=== PATIENT | female | born 1940 | race Caucasian/White ===

== ENCOUNTER 2019-02-26 09:34 | Outpatient (REF) | payer OTHER, SELFPAY ==
[2019-02-26 19:10] LABS: Anion Gap 12.4 mmol/L (3-11); BUN 23 mg/dL (7-18); CO2 25.6 mmol/L (21.0-32.0); CREATININE 1.08 mg/dL (0.55-1.02); Calcium 9.4 mg/dL (8.5-10.1); Chloride 104 mmol/L (98-107); Estimated GFR 49.33 (mL/min/1.73m2); Glucose 169 mg/dL (70-100); Potassium 4.5 mmol/L (3.5-5.1); Sodium 142 mmol/L (136-145)
== END 2019-02-26 09:54 ==
LOC: NCHCN 09:34
PROVIDERS: PCP Physician Assistant Medical; Visit Provider Physician Assistant Medical
DX: E11.9 Type 2 diabetes mellitus without complications (principal)
CPT/HCPCS: 80048

== ENCOUNTER 2019-04-16 11:16 | Outpatient (REF) | payer OTHER, SELFPAY ==
[2019-04-16 19:01] LABS: Uric Acid 4.5 mg/dL (2.6-6.0)
== END 2019-04-16 11:36 ==
LOC: NCHCN 11:16
PROVIDERS: PCP Physician Assistant Medical; Visit Provider Nurse Practitioner Family
DX: M25.531 Pain in right wrist (principal)
CPT/HCPCS: 84550

== ENCOUNTER 2019-08-31 11:54 | Emergency (ER) | payer OTHER, SELFPAY ==
[2019-08-31 11:59] VITALS: BP 173/74; PULSE 67; RESP 16; TEMP 36.6; O2SAT 98
--- NOTE | 2019-08-31 12:10 | W.ED.GENAD ---
Discharge Plan Disposition Patient Disposition: HOME Discharge Details Chief Complaint: Orthopedic Clinical Impression: Acute pain of left knee Primary Care Provider: Drew Zheng ED Provider: Eliecer Heredia Home Meds and New Rx's Prescriptions: Continued aspirin [Aspir-81] 81 MG tablet,delayed release (DR/EC) 81 mg PO DAILY RF: 0 simvastatin 40 MG tablet 40 mg PO QPM RF: 0 Dexilant 60 MG capsule,biphase delayed releas 60 mg PO DAILY RF: 0 ibuprofen 800 mg Tablet 800 mg PO DAILY RF: 0 tramadol 50 mg Tablet 50 mg PO PRN PRNRF: 0 magnesium 250 mg Tablet 250 mg PO DAILY RF: 0 Calcium 600 + D(3) 600 mg calcium- 200 unit Capsule 1 cap PO DAILY RF: 0 Levemir FlexTouch U-100 Insuln 100 unit/mL (3 mL) Insulin Pen 40 unit SUBCUT DAILY RF: 0 No Action hydrocodone-acetaminophen 5-325 mg tablet 1 tab PO Q8H PRNRF: 0 indomethacin 25 mg capsule 25 mg PO BID PRNRF: 0 Discharge Instructions Instructions: Knee Pain (ED) Additional Instructions: Please take your medication as prescribed. Use knee brace and crutches. Please follow-up with orthopedics. Call to schedule follow-up appointment. Return to the ER for any worsening or new concerning symptoms. Referrals: [facility] [Provider Group] Merna Castanon [ NON-[facility] STAFF PHYSICIAN] - Discharge Data Discharge Date/Time-TO BE ENTERED AT DEPARTURE: 08/31/19 13:13 Medical Decision Making 12:15 -- 78-year-old female here with worsening pain left knee 3 weeks after knee was impacted with a Michael lift resulting in a popping sensation, also had fall about 1 week ago impacting her left anterior tibia. Patient is neurovascular intact distally. She does have mild knee effusion and pain with ambulation and flexion of her knee. I suspect she sustained meniscal tear. Consider ligamentous injury. Plan to obtain x-ray of the knee and tib-fib. 12:50 --x-ray of the knee and tib-fib interpreted by radiology: Negative. Plan for hinged knee brace and crutches and follow-up with orthopedics. HPI General Mode of arrival: ambulatory. Date/Time Provider Initiated Documentation: 08/31/19 12:01. Limitations to Documentation: no limitations. Information obtained by: patient. HPI Narrative: 78-year-old female presents with chief complaint of knee pain. Patient notes left knee pain for the past 3 weeks. She states that 3 weeks ago she recalls experiencing a popping sensation when a Michael lift glanced her knee. Pain has been waxing and waning since onset. Pain is now severe. Pain worse with attempted ambulation and bending of her knee. Patient also notes about a week ago she slipped and fell and impacted her left vazquez. Related Data Home Medications Medication Instructions Recorded Confirmed Dexilant 60 mg PO DAILY 03/30/14 09/19/19 aspirin [Aspir-81] 81 mg PO DAILY 03/30/14 09/19/19 simvastatin 40 mg PO QPM 03/30/14 09/19/19 Calcium 600 + D(3) 1 cap PO DAILY 08/31/19 09/19/19 Levemir FlexTouch U-100 Insuln 40 unit SUBCUT DAILY 08/31/19 09/19/19 ibuprofen 800 mg PO DAILY 08/31/19 09/19/19 magnesium 250 mg PO DAILY 08/31/19 09/19/19 tramadol 50 mg PO PRN PRN 08/31/19 09/19/19 hydrocodone 5 mg-acetaminophen 325 1 tab PO Q8H PRN 09/19/19 09/19/19 mg tablet indomethacin 25 mg capsule 25 mg PO BID PRN 09/19/19 09/19/19 Allergies Allergy/AdvReac Type Severity Reaction Status Date / Time clindamycin Allergy Mild Unverified 09/19/19 12:09 General Stated Complaint: Orthopedic BRIJESH: 4 Review of Systems Musculoskeletal Musculoskeletal: Reports as per HPI [facility] Social History Smoking/Tobacco Use Status: Former Tobacco Use Alcohol Intake: current Alcohol Intake frequency: a few times a month Drug use: Never Substance use type: does not use Do you feel safe at home: Yes Do you feel safe in your relationship?: Yes Exam Const General: cooperative and no acute distress Cardio Rate: regular rate and not tachycardic Rhythm: regular rhythm Pulses: posterior tibial pulses present on the left 2+ Skin General skin exam: no rashes or lesions noted Neuro General: alert, awake, oriented x3 and tone normal Extrem General: no edema Left lower extremity: knee Details: swelling (effusion mild) and knee ligament exam normal; no unusual warmth and lower leg Details: tenderness (proximal anterior tibia), localized swelling Location: of the proximal lower leg and ecchymosis (mild ant tibia); no palpable cords Course Vital Signs Vital signs: Vital Signs Temperature 36.6 C 08/31/19 11:59 Pulse 67 08/31/19 11:59 Respiratory Rate 16 08/31/19 11:59 Blood Pressure 173/74 H 08/31/19 11:59 Pulse Oximetry 98 08/31/19 11:59 Temperature 36.6 C 08/31/19 11:59 Temperature Source Temporal Artery Scan 08/31/19 11:59 Pulse 67 08/31/19 11:59 Respiratory Rate 16 08/31/19 11:59 Respiratory Effort Non-Labored 08/31/19 11:59 Blood Pressure 173/74 H 08/31/19 11:59 Blood Pressure Position Sitting 08/31/19 11:59 Pulse Oximetry 98 08/31/19 11:59 Oxygen Delivery Method Room Air 08/31/19 11:59 Oxygen Flow Rate 0 08/31/19 11:59 Pain Level 8 08/31/19 11:59
--- NOTE | 2019-08-31 12:32 | DI.RAD_ITS ---
EXAM: XR KNEE LT 3V AP,LAT,EVELINA CLINICAL HISTORY: pain TECHNIQUE: COMPARISON: XR KNEE LT 3V AP,LAT,EVELINA from 08/31/2019 XR TIB/FIB LT from 08/31/2019 FINDINGS: Three views of the knee and two views of the leg were obtained. There are minimal degenerative oakes es of the joints of the knee. No fracture seen involving the knee or leg. IMPRESSION:
== END 2019-08-31 13:13 | disposition home or self-care (01) ==
PROVIDERS: Emergency Provider Student in an Organized Health Care Education/Training Program; PCP Internal Medicine
DX: M25.562 Pain in left knee (principal); M25.462 Effusion, left knee; W22.8XXA Striking against or struck by other objects, initial encounter
CPT/HCPCS: 29505; 73562; 99284; 73590; 99283; E0114; L1810

== ENCOUNTER → 2019-09-19 09:22 | Outpatient (BNVA) | payer OTHER, SELFPAY | PROVIDERS: PCP Internal Medicine; Referring Provider Internal Medicine; Visit Provider Orthopaedic Surgery | DX: M23.92 Unspecified internal derangement of left knee (principal); W22.09XA Striking against other stationary object, initial encounter | CPT/HCPCS: 99201; 99213 ==

== ENCOUNTER 2019-09-25 01:34 | Outpatient (CLI) | payer OTHER, SELFPAY ==
--- NOTE | 2019-09-25 15:14 | DI.MRI_ITS ---
EXAM: MR LOWER JOINT LT WO CLINICAL HISTORY: LT INTERNAL DERANGEMENT. TECHNIQUE: Multiplanar multisequence MRI was performed.. COMPARISON: None. FINDINGS: BONES/JOINTS: No evidence of fracture. No evidence of bone lesion. No joint space narrowing identifie d. There is a moderate joint effusion. LIGAMENTS: The medial and lateral collateral ligaments are intact. Anterior and posterior cruciate l igaments are intact. The extensor mechanism and medial and lateral collateral ligaments are intact. MUSCULOTENDINOUS STRUCTURES: The popliteus tendon is unremarkable. SOFT TISSUES: There is edema seen in the soft tissues around the knee. There is a small popliteal cy st present. Menisci: There is a tear of the body and posterior horn of the medial meniscus. The lateral meniscus is intact. Cartilage: Intact. IMPRESSION: 1. Tear of the body and posterior horn of the medial meniscus. 2. No evidence of a ligament tear. 3. Moderate joint effusion. 4. Subcutaneous edema. Popliteal cyst. 5. No evidence of a fracture.
== END 2019-09-25 01:54 ==
PROVIDERS: PCP Internal Medicine; Visit Provider Orthopaedic Surgery
DX: M25.562 Pain in left knee (principal); M23.92 Unspecified internal derangement of left knee; S83.242A Other tear of medial meniscus, current injury, left knee, initial encounter; M25.462 Effusion, left knee; M79.89 Other specified soft tissue disorders; M71.22 Synovial cyst of popliteal space [Baker], left knee
CPT/HCPCS: 73721

== ENCOUNTER → 2019-10-02 10:35 | Outpatient (BNVA) | payer OTHER, SELFPAY | PROVIDERS: PCP Internal Medicine; Referring Provider Internal Medicine; Visit Provider Orthopaedic Surgery | DX: M23.92 Unspecified internal derangement of left knee (principal) | CPT/HCPCS: 99213 ==

== ENCOUNTER 2019-10-19 09:29 | Outpatient (CLI) | payer OTHER, SELFPAY | END 2019-10-19 09:49 | PROVIDERS: PCP Internal Medicine; Visit Provider Orthopaedic Surgery | DX: Z01.818 Encounter for other preprocedural examination (principal) ==

== ENCOUNTER 2019-10-22 15:53 | Observation (INO) | payer OTHER, SELFPAY ==
[2019-10-19 09:46] VITALS: BP 149/81; PULSE 58; RESP 17; TEMP 37; O2SAT 95
[2019-10-22] VITALS (17 sets, daily range): BP systolic 121–200; BP diastolic 43–90; PULSE 53–72; RESP 10–21; TEMP 35.9–36.7; O2SAT 86–100
[2019-10-22] MEDS: Lactated Ringers 1,000 ML 80 ML IV ×2 (12:55→17:16)
[2019-10-22] MEDS: ceFAZolin 2 GM/50 ML BAG IVPB (13:07)
[2019-10-22] MEDS: Bupivacaine 0.5% Pres-Free 30 ML VIAL (14:14)
--- NOTE | 2019-10-22 14:18 | W.PM.DSUDISC ---
Discharge Plan Disposition Patient Disposition: HOME Condition: Good Discharge Details Reason For Visit: Arthroscopy L Knee Attending Provider: Russel Smith Primary Care Provider: Drew Zheng Home Meds and New Rx's Prescriptions: New celecoxib [Celebrex] 200 mg capsule 200 mg PO BID Qty: 60 RF: 0 hydrocodone-acetaminophen 5-325 mg tablet 1 tab PO Q6H PRN (Reason: pain) Qty: 20 RF: 0 Discontinued indomethacin 25 mg capsule 25 mg PO BID PRNRF: 0 ibuprofen 800 mg Tablet 800 mg PO DAILY RF: 0 No Action hydrocodone-acetaminophen 5-325 mg tablet 1 tab PO Q8H PRNRF: 0 aspirin [Aspir-81] 81 MG tablet,delayed release (DR/EC) 81 mg PO DAILY RF: 0 simvastatin 40 MG tablet 40 mg PO QPM RF: 0 tramadol 50 mg Tablet 50 mg PO PRN PRNRF: 0 magnesium 250 mg Tablet 250 mg PO DAILY RF: 0 Calcium 600 + D(3) 600 mg calcium- 200 unit Capsule 1 cap PO DAILY RF: 0 Levemir FlexTouch U-100 Insuln 100 unit/mL (3 mL) Insulin Pen 40 unit SUBCUT DAILY RF: 0 pantoprazole [Protonix] 40 mg Tablet,Delayed Release (Dr/Ec) 40 mg PO DAILY RF: 0 acetaminophen [Tylenol] 325 mg Capsule 650 mg PO ONCE PRNRF: 0 Discharge Instructions Additional Instructions: Crutches to walk. Put as much weight on L leg as your pain allows. Discontinue crutches when you can step on L leg with little pain. Elevate L leg on 1-2 pillows as much as possible for next 48 hours. Apply cryocuff to L knee continuously overnite tonite. Tomorrow, start to use 4 times/day for 1 hour each time. May remove dressings, shower, and get incisions wet after 48 hours. May leave incisions uncovered when they are dry and sealed. Outpatient physical therapy in [facility] on or Tuesday for rehab L knee post-arthroscopic partial lateral meniscectomy. Follow up with in 2 weeks. Take celebrex twice/day as prescribed. It won't bother your stomach like ibuprofen, naprosyn or indocin. Take hydrocodone for breakthru pain, if needed. Referrals: Russel Smith MD [ [facility] STAFF PHYSICIAN] - (f/u in 2 weeks) Equipment/Supplies: Partial Weight Bearing Crutches Activity:: Activity as Tolerated Remove Dressings/Wound Care:: 48 hours Shower/Bathe:: 48 hours Diet:: As Tolerated Discharge Orders Discharge Orders: Discharge Order (Routine); Ordered 10/22/19 Ordered By: Russel Smith DS: Diagnosis Discharge Diagnosis (1) Derange posterior horn lateral meniscus left knee due to old injury: Status: Acute
[2019-10-22] MEDS: fentaNYL 100 MCG/2 ML VIAL IVP ×2 (14:46→14:55)
[2019-10-22] MEDS: HYDROmorphone 2 MG/ML VIAL IVP ×3 (15:03→15:31)
[2019-10-22] MEDS: oxyCODONE-CR 10 MG TABCR PO ×2 (15:55→18:03)
[2019-10-22] MEDS: Simvastatin 40 MG TAB PO (20:15)
[2019-10-22] MEDS: Ketorolac 30 MG/ML VIAL IVP (20:15)
[2019-10-22] MEDS: Normal Saline 1,000 ML 60 ML IV (22:00)
[2019-10-22] MEDS: oxyCODONE 5 mg/Acetaminophen 325 mg TAB 1 TAB PO (22:16)
[2019-10-22] MEDS: Mylanta Suspension 30 ML CUP PO (22:16)
[2019-10-23 01:07] VITALS: BP 133/77; PULSE 84; RESP 19; TEMP 36.6; O2SAT 96
[2019-10-23] MEDS: Ketorolac 30 MG/ML VIAL IVP ×2 (01:59→08:38)
[2019-10-23 02:08] VITALS: TEMP 36.5
[2019-10-23 05:27] VITALS: BP 126/67; PULSE 82; RESP 19; TEMP 37.2; O2SAT 96
[2019-10-23] MEDS: oxyCODONE-CR 10 MG TABCR PO (05:31)
[2019-10-23] MEDS: Mylanta Suspension 30 ML CUP PO (05:32)
[2019-10-23 07:36] VITALS: BP 135/78; PULSE 73; RESP 16; TEMP 36.7; O2SAT 95
[2019-10-23] MEDS: Calcium 600mg/Vit D 200U TAB 1 TAB PO (08:37)
[2019-10-23] MEDS: Magnesium Gluconate 500 MG TAB 250 MG PO (08:37)
[2019-10-23] MEDS: Pantoprazole 40 MG TABCR PO (08:37)
[2019-10-23] MEDS: Normal Saline Flush 10 ML SYR IV (08:37)
[2019-10-23] MEDS: Aspirin E.C. 81 MG TABEC PO (08:37)
[2019-10-23] MEDS: oxyCODONE 5 mg/Acetaminophen 325 mg TAB 1 TAB PO (08:43)
--- NOTE | 2019-10-25 06:40 | ROE_ITS ---
REPORT OF OPERATIVE PROCEDURE DATE OF PROCEDURE October 22, 2019 PREOPERATIVE DIAGNOSIS Internal derangement left knee. POSTOPERATIVE DIAGNOSES Internal derangement left knee due to torn lateral meniscus, and synovitis, left knee. PROCEDURES Arthroscopy of the left knee with arthroscopic partial left lateral meniscectomy, and limited synovec suyapa. ANESTHESIA General. SURGEON Russel Smith M.D. INDICATIONS This is a 78-year-old white female who had a little over two month history of an injury to her left k nee. She sustained a glancing blow from a Michael lift. She thinks that she twisted her knee when she t ried to avoid the lift and she said she fell and heard a pop in her knee. She had some pain, but was able to function until she re-injured her knee three weeks after. She twisted her knee and fell to th e ground striking her vazquez. She felt another pop in her knee. Her knee became much more painful. She went to the Emergency Room on 08/31/19. X-rays did not show any particular injury. She has continued to use crutches. It is very painful with weight bearing to her left knee. She has been taking Tramado l, it has not helped much. She has been icing her knee intermittently. She has been unable to fully e xtend her knee. An MRI scan was obtained, which was interpreted as showing a tear of the body and pos terior horn of the medial meniscus. There is moderate joint effusion and a popliteal cyst. Because of failure to improve after two months with conservative treatment, I felt that an arthroscopic exam of her knee was warranted. The risks and complications of the procedure were to the patient in detail p reoperatively. PROCEDURE The patient was taken to the Operating Room on . She was placed supine on the operating tabl e and a general anesthetic was administered. The left thigh was placed in the arthroscopic leg holde r. Then the left knee was prepped and draped free in the usual sterile fashion. Arthroscopic portal s were established and the left knee was inflated with normal saline solution using the arthroscopy p ump. Intraoperative photographs were obtained to document findings. Upon entering the medial compartment, she was found to have some mild DJD grade 2 over a small area i n the medial femoral condyle mostly on the lateral third. There was some fraying of the inner margin of the medial meniscus, however, when I probed the medial meniscus under direct vision with the right angle nerve hook, there were no occult tears identified. The meniscal rim was total stable. The intr acondylar notch was at first difficult to visualize because of hypertrophic fat pad and synovium. Usi jose high radiofrequency electrocautery wand, I resected the fat pad and hypertrophic synovium in the i ntracondylar notch so I was able to visualize the intracondylar notch clearly. Her anterior and poste rior cruciate ligaments were undamaged and intact. As I entered the lateral compartment, she had a tear of the attachment of the posterior horn of the l ateral meniscus. This was probed under direct vision and there was found to be a small flap tear. The flap tear was resected with the high radiofrequency electrocautery wand and a stable rim remained. I probed not only the posterior attachment of the lateral meniscus, but the entire lateral meniscus w ith the right angle nerve hook following resection and the lateral meniscus was fully stable. The art icular cartilage in the lateral compartment was completely normal and undamaged. The medial gutter was obscured by hypertrophic and hyperemic synovium, probably residual plica. I res ected the hypertrophic synovium using the high radiofrequency electrocautery wand restoring the carline l volume of the medial gutter. Finally, enough synovectomy was performed so that the patellofemoral j oint could be clear visualized. The patella was tracking anatomically with no tilt and there was no e vidence of any significant articular cartilage damage in the patellofemoral joint. At this point, the knee was copiously irrigated with saline solution using the arthroscopy pump until the outflow was c lear. All instruments were removed from the knee. The arthroscopy portals were infiltrated with 0.5% Marcaine solution and were approximated with interrupted #4-0 Nylon sutures. Using a #18 gauge needl e and a syringe through a separate puncture, I injected into the knee 20 cc of 0.5% Marcaine solution along with 4 mg of morphine. Sterile dressings were applied Xeroform gauze, sterile gauze, 4x4s, ABD pads and wrapped with 6-inch Sami bandage for a light pressure dressing. The patient tolerated the procedure well and was discharged to the Recovery Room in good condition. When seen in the Recovery Room when fully recovered, she was complaining of severe pain in her left k nee that was not relieved by the narcotics we were giving her. On examination, her leg was benign and I could not explain why she had so much pain. The procedure was uncomplicated, simple and fast. I fe lt that this may be anesthesia related and I recommended that she be admitted OVB overnight for pain control. The patient agreed with my recommendations. The plan is to discharge her tomorrow if her pain has come under control with oral pain medications.
== END 2019-10-23 10:34 | disposition home or self-care (01) ==
LOC: MS 16:39
PROVIDERS: Admitting Provider Orthopaedic Surgery; PCP Internal Medicine; Visit Provider Orthopaedic Surgery
PROC: 0SBD4ZZ Excision of Left Knee Joint, Percutaneous Endoscopic Approach (ICD-10-PCS; CPT 29870; principal; 2019-10-22 13:30)
DX: S83.282A Other tear of lateral meniscus, current injury, left knee, initial encounter (principal); X50.1XXA Overexertion from prolonged static or awkward postures, initial encounter; M67.262 Synovial hypertrophy, not elsewhere classified, left lower leg; M17.12 Unilateral primary osteoarthritis, left knee; M65.9 Synovitis and tenosynovitis, unspecified; E11.9 Type 2 diabetes mellitus without complications
CPT/HCPCS: 29876; 29881; G0378; J0690; J1100; J1885; J2001; J2250; J2405; J2704; J3010; J3490

== ENCOUNTER → 2019-11-06 10:28 | Outpatient (BNVA) | payer OTHER, SELFPAY | PROVIDERS: PCP Internal Medicine; Referring Provider Internal Medicine; Visit Provider Orthopaedic Surgery | DX: M23.252 Derangement of posterior horn of lateral meniscus due to old tear or injury, left knee (principal); E11.9 Type 2 diabetes mellitus without complications ==

== ENCOUNTER 2019-11-19 17:12 | Outpatient (REF) | payer OTHER, SELFPAY ==
[2019-11-19 19:45] LABS: ALT 22 U/L (14-59); AST 18 U/L (15-37); Albumin 4.3 g/dL (3.4-5.0); Alkaline Phosphatase 89 U/L (46-116); Anion Gap 8.1 mmol/L (3-11); BUN 22 mg/dL (7-18); Bilirubin, Total 0.4 mg/dL (0.2-1.0); CO2 29.9 mmol/L (21.0-32.0); Calcium 9.8 mg/dL (8.5-10.1); Calculated LDL 132 mg/dL (<100); Chloride 104 mmol/L (98-107); Cholesterol 228 mg/dL (<200); Estimated GFR 53.91 (mL/min/1.73m2); Glucose 99 mg/dL (74-106); HDL Cholesterol 60 mg/dL (40-60); Potassium 4.8 mmol/L (3.5-5.1); Sodium 142 mmol/L (136-145); TSH (W/Ref FT4) 3.07 uIU/mL (0.36-3.74); Total Protein 7.7 g/dL (6.4-8.2); Triglyceride 184 mg/dL (<150)
[2019-11-19 19:46] LABS: COMMENT (LAB VIEW ONLY) 125.29 mg/dL; Microalb ug/mg Crea 6.1 ug/mg Cr
== END 2019-11-19 17:32 ==
LOC: NCHCN 17:12
PROVIDERS: PCP Internal Medicine; Visit Provider Physician Assistant
DX: E78.5 Hyperlipidemia, unspecified (principal); E11.9 Type 2 diabetes mellitus without complications; K21.9 Gastro-esophageal reflux disease without esophagitis; M25.562 Pain in left knee; E66.9 Obesity, unspecified
CPT/HCPCS: 80053; 80061; 82043; 82570; 84443

== ENCOUNTER 2019-11-29 10:30 | Outpatient (REF) | payer OTHER, SELFPAY ==
[2019-11-29 19:27] LABS: Abs Immature Grans 0.04 k/cumm (0.0-0.09); Absolute Basophil Count 0.02 k/cumm (0.0-0.2); Absolute Eosinophil Count 0.17 k/cumm (0.0-0.7); Absolute Monocyte Count 0.53 k/cumm (0.11-0.7); Absolute Neutrophil Count 4.59 k/cumm (1.2-6.7); Basophils % 0.3; Eosinophils % 2.4; HCT 36.1 % (36.0-46.0); HGB 11.3 g/dL (12.0-15.5); Immature Grans % 0.6 %; Lymphocytes % 24.1; Mean Corp. HGB Concentration 31.3 g/dL (32.0-36.0); Mean Corpuscular Hemoglobin 30.3 pg (27.0-33.0); Mean Corpuscular Volume 96.8 fL (80-95); Mean Platelet Volume 10.5 fL (8.0-11.0); Monocytes % 7.5; Neutrophils % 65.1; Platelet Count 340 x1000/uL (130-400); RBC 3.73 m/cumm (4.00-5.20); White Blood Cell Count 7.05 k/cumm (4.4-10.8)
[2019-11-29 20:03] LABS: Ferritin 44 ng/mL (8-252); Magnesium 1.8 mg/dL (1.8-2.4); Vitamin B12 368 pg/mL (193-986)
[2019-11-29 20:14] LABS: Iron 69 ug/dL (50-170)
== END 2019-11-29 10:50 ==
LOC: NCHCN 10:30
PROVIDERS: PCP Internal Medicine; Visit Provider Physician Assistant
DX: G25.81 Restless legs syndrome (principal); E11.9 Type 2 diabetes mellitus without complications
CPT/HCPCS: 82607; 82728; 83540; 83735; 85025

== ENCOUNTER 2020-01-09 10:20 | Outpatient (CLI) | payer OTHER, SELFPAY ==
--- NOTE | 2020-01-09 09:30 | DI.RAD_ITS ---
EXAM: XR KNEE LT 2V AP,LAT CLINICAL HISTORY: pain TECHNIQUE: COMPARISON: XR KNEE LT 3V AP,LAT,EVELINA from 08/31/2019 FINDINGS: Two views were obtained. There is mild narrowing of the medial tibiofemoral cartilaginous joint spac e. Mild marginal osteophyte formation noted involving the patellofemoral joint. There does appear t o be a knee joint effusion. No other significant bony abnormality seen. IMPRESSION: Mild degenerative changes, predominantly involving medial tibiofemoral joint.
== END 2020-01-09 10:40 ==
PROVIDERS: PCP Internal Medicine; Referring Provider Internal Medicine; Visit Provider Orthopaedic Surgery
DX: M25.562 Pain in left knee (principal); M17.12 Unilateral primary osteoarthritis, left knee; M25.462 Effusion, left knee; M23.252 Derangement of posterior horn of lateral meniscus due to old tear or injury, left knee; E11.9 Type 2 diabetes mellitus without complications; Z79.4 Long term (current) use of insulin
CPT/HCPCS: 20610; 99213; 73560; J1040

== ENCOUNTER → 2020-02-20 10:47 | Outpatient (BNVA) | payer OTHER, SELFPAY | PROVIDERS: PCP Internal Medicine; Referring Provider Internal Medicine; Visit Provider Orthopaedic Surgery | DX: M23.252 Derangement of posterior horn of lateral meniscus due to old tear or injury, left knee (principal); E11.9 Type 2 diabetes mellitus without complications; Z79.4 Long term (current) use of insulin | CPT/HCPCS: 99213 ==

== ENCOUNTER → 2020-03-19 09:25 | Outpatient (BNVA) | payer OTHER, SELFPAY | PROVIDERS: PCP Internal Medicine; Referring Provider Internal Medicine; Visit Provider Orthopaedic Surgery | DX: M70.52 Other bursitis of knee, left knee (principal); M23.252 Derangement of posterior horn of lateral meniscus due to old tear or injury, left knee; E11.9 Type 2 diabetes mellitus without complications | CPT/HCPCS: 20610; 99213; J1040 ==

== ENCOUNTER → 2020-04-16 09:26 | Outpatient (BNVA) | payer OTHER, SELFPAY | PROVIDERS: PCP Internal Medicine; Referring Provider Internal Medicine; Visit Provider Orthopaedic Surgery | DX: M70.52 Other bursitis of knee, left knee (principal); M23.252 Derangement of posterior horn of lateral meniscus due to old tear or injury, left knee | CPT/HCPCS: 20610; 99213; J1040 ==

== ENCOUNTER 2020-08-20 11:26 | Outpatient (REF) | payer OTHER, SELFPAY ==
[2020-08-20 21:16] LABS: ALT 34 U/L (14-59); AST 26 U/L (15-37); Albumin 3.6 g/dL (3.4-5.0); Alkaline Phosphatase 121 U/L (46-116); BUN 18 mg/dL (7-18); Bilirubin, Total 0.4 mg/dL (0.2-1.0); CREATININE 1.06 mg/dL (0.55-1.02); Calcium 8.9 mg/dL (8.5-10.1); Chloride 105 mmol/L (98-107); Estimated GFR 50.27 (mL/min/1.73m2); Glucose 223 mg/dL (74-106); LDL CHOLESTEROL 68 mg/dL (<100); Potassium 4.6 mmol/L (3.5-5.1); Sodium 140 mmol/L (136-145); Total Protein 6.4 g/dL (6.4-8.2)
== END 2020-08-20 11:46 ==
LOC: NCHCN 11:26
PROVIDERS: PCP Internal Medicine; Visit Provider Physician Assistant
DX: E11.9 Type 2 diabetes mellitus without complications (principal)
CPT/HCPCS: 80053; 83721

== ENCOUNTER 2020-08-21 10:30 | Outpatient (REF) | payer OTHER, SELFPAY | END 2020-08-21 10:50 | LOC: NCHCN 10:30 | PROVIDERS: PCP Internal Medicine; Visit Provider Physician Assistant | DX: E11.9 Type 2 diabetes mellitus without complications (principal); N89.9 Noninflammatory disorder of vagina, unspecified | CPT/HCPCS: 87480; 87510; 87660 ==

== ENCOUNTER 2020-10-30 16:20 | Outpatient (REF) | payer OTHER, SELFPAY ==
[2020-10-30 15:55] LABS: Anion Gap 6.5 mmol/L (3-11); BUN 22 mg/dL (7-18); CO2 27.5 mmol/L (21.0-32.0); CREATININE 1.2 mg/dL (0.55-1.02); Calcium 9.4 mg/dL (8.5-10.1); Chloride 108 mmol/L (98-107); Estimated GFR 43.56 (mL/min/1.73m2); Glucose 87 mg/dL (74-106); Magnesium 2.1 mg/dL (1.8-2.4); Potassium 4.6 mmol/L (3.5-5.1); Sodium 142 mmol/L (136-145)
== END 2020-10-30 16:21 | disposition home or self-care (01) ==
LOC: NCHCN 16:20
PROVIDERS: PCP Internal Medicine; Visit Provider Physician Assistant
DX: R60.0 Localized edema (principal); G25.81 Restless legs syndrome; M79.18 Myalgia, other site
CPT/HCPCS: 80048; 83735

== ENCOUNTER 2020-12-11 11:22 | Outpatient (REF) | payer OTHER, SELFPAY ==
[2020-12-11 15:44] LABS: COMMENT (LAB VIEW ONLY) 76.07 mg/dL; Microalb ug/mg Crea 6.2 ug/mg Cr
== END 2020-12-11 11:23 | disposition home or self-care (01) ==
LOC: NCHCN 11:22
PROVIDERS: PCP Internal Medicine; Visit Provider Physician Assistant
DX: E11.9 Type 2 diabetes mellitus without complications (principal)
CPT/HCPCS: 82043; 82570

== ENCOUNTER 2021-04-29 01:15 | Outpatient (CLI) | payer OTHER, SELFPAY ==
--- NOTE | 2021-04-29 | DI.MRI_ITS ---
Exam(s) MR LOWER JOINT LT WO EXAM: MR LOWER JOINT LT WO CLINICAL HISTORY: LT KNEE PAIN, M25.562 TECHNIQUE: Multiplanar multisequence MRI of the knee was performed. COMPARISON: MR MR LOWER JOINT LT WO from 09/25/2019 CR XR KNEE LT 2V AP,LAT from 01/09/2020 FINDINGS: EFFUSION: There is a moderate-sized joint effusion. No obvious loose intra-articular body. There is a tiny Landry cyst in the medial popliteal fossa. This measures less than 1 cm. MARROW:There is no evidence of fracture, bone contusion, nor osteochondral defects.. There are no si gnificant osseous lesions. PATELLOFEMORAL COMPARTMENT: The quadriceps tendon is intact. The patellar ligament is intact. There is moderate relatively uniform thinning of the retropatellar cartilage. There is mild degenera tive subarticular edema in the posterior patella. No osteochondral defect nor prominent degenerative cyst at this level. No patellar retinacular tears. CRUCIATE LIGAMENTS: The anterior cruciate ligament is intact.The posterior cruciate ligament is intac t. MEDIAL COMPARTMENT/MEDIAL MENISCUS: There is a complex tear in the posterior horn of the medial menis cus noted.On the present study the main component of the tear is 9 millimeters medial to the root att achment.. There is mild extrusion of the posterior horn, more so than previous but without descent i nto the gutter. No obvious tear of the anterior horn. Moderate degenerative changes in the overlyin g cartilage. No osteochondral defect. No subarticular edema in the femoral condyle. Small marginal osteophyte.. MEDIAL COLLATERAL LIGAMENT: Mild sprain signal. No high-grade tear LATERAL COMPARTMENT/LATERAL MENISCUS: There is now a tear in the posterior horn of the lateral menisc us which was not previously present. Location of this tear is similar to the tear of the posterior h orn of the medial meniscus, approximately 9 millimeters in from the root and this tear was not eviden t on the prior MRI study of September 2019. Anterior horn of the lateral meniscus appears intact. The re are minimal cartilage changes over the lateral femoral condyle. No degenerative subarticular intr aosseous signal and no osteochondral defects. No obvious osteophytes. ILIOTIBIAL BAND: Intact LATERAL COLLATERAL LIGAMENT COMPLEX: The fibular collateral ligament is intact. The biceps femoris t endon is intact.Popliteus muscle and tendon are intact. IMPRESSION: 1. Compared to the prior left knee MRI scan of September 2019 there are now tears of the posterior horn s of both menisci. There was previously only a tear of the posterior horn of the medial meniscus. P resently this is a complex tear and there is also a somewhat similar appearing tear of the posterior horn of the lateral meniscus which was not evident on the prior study. 2. There are only mild degenerative cartilage changes. No osteochondral defects. No subarticular in traosseous edema. 3. Cruciate and collateral ligaments are intact. 4. Moderate-sized joint effusion. There is no obvious loose intra-articular body. A tiny Landry cyst is noted, measuring less than 1 cm. DATA REPOSITORY:
== END 2021-04-29 01:35 ==
PROVIDERS: PCP Internal Medicine; Visit Provider Physician Assistant
DX: M71.22 Synovial cyst of popliteal space [Baker], left knee (principal); M17.12 Unilateral primary osteoarthritis, left knee; M23.252 Derangement of posterior horn of lateral meniscus due to old tear or injury, left knee
CPT/HCPCS: 73721

== ENCOUNTER → 2021-05-08 09:06 | Outpatient (BNVA) | payer OTHER, SELFPAY | PROVIDERS: PCP Internal Medicine; Referring Provider Internal Medicine; Visit Provider Student in an Organized Health Care Education/Training Program | DX: M23.92 Unspecified internal derangement of left knee (principal); Z98.890 Other specified postprocedural states | CPT/HCPCS: 20610; J1040 ==

== ENCOUNTER → 2021-06-25 12:44 | Outpatient (BNVA) | payer OTHER, SELFPAY | PROVIDERS: PCP Internal Medicine; Referring Provider Internal Medicine | DX: Z01.818 Encounter for other preprocedural examination (principal); M23.92 Unspecified internal derangement of left knee; E11.69 Type 2 diabetes mellitus with other specified complication ==

== ENCOUNTER 2021-06-29 02:49 | Outpatient (CLI) | payer OTHER, SELFPAY ==
[2021-06-29 12:53] LABS: Source Nasal/Nares
[2021-06-29 20:55] LABS: COVID-19 PCR Negative (Negative)
== END 2021-06-29 02:50 | disposition home or self-care (01) ==
LOC: LBO 02:49
PROVIDERS: PCP Internal Medicine; Visit Provider Student in an Organized Health Care Education/Training Program
DX: Z20.822 Contact with and (suspected) exposure to COVID-19 (principal); Z01.818 Encounter for other preprocedural examination
CPT/HCPCS: 87635

== ENCOUNTER 2021-06-30 07:40 | Day surgery (SDC) | payer OTHER, SELFPAY ==
[2021-06-30] VITALS (8 sets, daily range): BP systolic 157–189; BP diastolic 52–86; PULSE 67–78; RESP 16–26; TEMP 35.4–36.2; O2SAT 95–99; BMI 33.3
--- NOTE | 2021-06-30 07:29 | PDOC.DSDIS_ITS ---
Documented by User: ADRIÁN Pearson 06/30/21 07:31 Discharge Plan Disposition Patient Disposition: HOME Condition: Good Discharge Details Reason For Visit: Left Knee Arthroscopy Attending Provider: León Samuel Primary Care Provider: Drew Zheng Home Meds and New Rx's Prescriptions: New hydrocodone-acetaminophen 5-325 mg tablet 1 tab PO Q6H PRN (Reason: pain) Qty: 8 RF: 0 acetaminophen 500 mg tablet 500 mg PO Q6H PRN PRN (Reason: pain) Qty: 60 RF: 3 Continued aspirin [Aspir-81] 81 MG tablet,delayed release (DR/EC) 81 mg PO DAILY RF: 0 simvastatin 40 MG tablet 40 mg PO QPM RF: 0 magnesium 250 mg Tablet 250 mg PO DAILY RF: 0 Calcium 600 + D(3) 600 mg calcium- 200 unit Capsule 1 cap PO DAILY RF: 0 Levemir FlexTouch U-100 Insuln 100 unit/mL (3 mL) Insulin Pen 50 unit SUBCUT HS RF: 0 Invokana 100 mg tablet 100 mg PO DAILY RF: 0 meloxicam [Mobic] 15 mg tablet 15 mg PO DAILY Qty: 30 RF: 3 Discontinued acetaminophen [Tylenol] 325 mg Capsule 650 mg PO ONCE PRNRF: 0 Discharge Instructions Stand Alone Forms: Anesthesia Discharge Inst., Anes.Nerve Block Instructions, Jimmie Knee Arthroscopy, Elba Amaro ([facility]) Referrals: León Samuel MD [ [facility] STAFF PHYSICIAN] - Equipment/Supplies: Partial Weight Bearing Crutches Activity:: Activity as Tolerated Remove Dressings/Wound Care:: 72 hours Shower/Bathe:: 72 hours Diet:: As Tolerated Discharge Orders Discharge Orders: Discharge Order (Routine); Ordered 06/30/21 Ordered By: Mary Montaño DS: Diagnosis Discharge Diagnosis (1) Internal derangement of left knee: Status: Acute Documented by User: León Samuel MD 06/30/21 12:28 Discharge Plan Disposition Patient Disposition: HOME Condition: Good Discharge Details Reason For Visit: Left Knee Arthroscopy Attending Provider: León Samuel Primary Care Provider: Drew Zheng Home Meds and New Rx's Prescriptions: New hydrocodone-acetaminophen 5-325 mg tablet 1 tab PO Q6H PRN (Reason: pain) Qty: 8 RF: 0 acetaminophen 500 mg tablet 500 mg PO Q6H PRN PRN (Reason: pain) Qty: 60 RF: 3 Continued aspirin [Aspir-81] 81 MG tablet,delayed release (DR/EC) 81 mg PO DAILY RF: 0 simvastatin 40 MG tablet 40 mg PO QPM RF: 0 magnesium 250 mg Tablet 250 mg PO DAILY RF: 0 Calcium 600 + D(3) 600 mg calcium- 200 unit Capsule 1 cap PO DAILY RF: 0 Levemir FlexTouch U-100 Insuln 100 unit/mL (3 mL) Insulin Pen 50 unit SUBCUT HS RF: 0 Invokana 100 mg tablet 100 mg PO DAILY RF: 0 meloxicam [Mobic] 15 mg tablet 15 mg PO DAILY Qty: 30 RF: 3 Discontinued acetaminophen [Tylenol] 325 mg Capsule 650 mg PO ONCE PRNRF: 0 Discharge Instructions Stand Alone Forms: Anesthesia Discharge Inst., Anes.Nerve Block Instructions, Jimmie Knee Arthroscopy, Elba Amaro ([facility]) Referrals: León Samuel MD [ [facility] STAFF PHYSICIAN] - Equipment/Supplies: Partial Weight Bearing Crutches Activity:: Activity as Tolerated Remove Dressings/Wound Care:: 72 hours Shower/Bathe:: 72 hours Diet:: As Tolerated Discharge Orders Discharge Orders: Discharge Order (Routine); Ordered 06/30/21 Ordered By: Mary Montaño
--- NOTE | 2021-06-30 08:09 | W.ANESPRE ---
General Info Date of Service Date Performed: 06/30/21 Height: 5 ft 2 in Weight: 82.552 kg Body Mass Index (BMI): 33.3 Surgical Procedure: Operation Date: 06/30/21 10:10 Proposed Procedures Side Surgeon p Knee Arthroscopy Left León Samuel MD Meds Allergies and Home Medications Allergies Allergy/AdvReac Type Severity Reaction Status Date / Time clindamycin Allergy Mild Unverified 06/30/21 07:03 Home Medication Medication Instructions Recorded aspirin [Aspir-81] 81 mg PO DAILY 03/30/14 simvastatin 40 mg PO QPM 03/30/14 Calcium 600 + D(3) 1 cap PO DAILY 08/31/19 Levemir FlexTouch U-100 Insuln 50 unit SUBCUT HS 08/31/19 magnesium 250 mg PO DAILY 08/31/19 acetaminophen [Tylenol] 650 mg PO ONCE PRN 10/22/19 meloxicam 15 mg tablet 15 mg PO DAILY #30 tab 04/16/20 Invokana 100 mg PO DAILY 06/26/21 Current Visit Medications: Current Medications Generic Name Dose Route Start Last Admin Trade Name Freq PRN Reason Stop Dose Admin Acetaminophen 650 mg 06/30/21 07:23 Acetaminophen 325 Mg Tab PO Q4H PRN PRN Hydrocodone Bitart/Acetaminophen 0 tab 06/30/21 07:23 Hydrocodone 5/Acetaminophen 325 Tab PO Q3H PRN PRN Pain Ringer's Solution 1,000 mls @ 80 mls/hr 06/30/21 06:00 IV 07/29/21 23:59 INFUSION STEPH Cefazolin Sodium/Dextrose 2 gm in 50 mls @ 100 mls/hr 06/30/21 06:00 Ancef Duplex IVPB 07/29/21 23:59 PREOP STEPH Ondansetron HCl 8 mg/ Sodium 54 mls @ 200 mls/hr 06/30/21 07:23 Chloride IVPB Q6H PRN PRN IV Miscellaneous Supplies 1 each 06/30/21 06:00 Iv Access IV 07/29/21 23:59 DIRECTED STEPH Sodium Chloride 0 ml 06/30/21 06:00 Normal Saline Flush 10 Ml Syr IV 07/29/21 23:59 PRN PRN Sodium Chloride 0 ml 06/30/21 06:00 Normal Saline 10 Ml Vial IJ 07/29/21 23:59 DIRECTED PRN Sterile Water 0 ml 06/30/21 06:00 Water,Injection,Sterile 10 Ml Vial IJ 07/29/21 23:59 DIRECTED PRN PFSH Active Problems Active Problems: Problem Status Onset Code Wrist pain, right M25.531 Osteoarthritis M19.90 Basal cell carcinoma, face C44.310 Contracture of joint of right hand M24.541 Health care maintenance Z00.00 AK (actinic keratosis) L57.0 Irritable bowel syndrome K58.9 Diverticulitis K57.92 Pes anserine bursitis M70.50 Internal derangement of left knee M23.92 Derange posterior horn lateral meniscus left knee due to old injury M23.252 Diabetes mellitus, type II E11.9 Hiatal hernia with gastroesophageal reflux disease and esophagitis K44.9, K21.0 Hyperlipidemia E78.5 Medical History Medical History (Updated 06/30/21 @ 08:02 by Marianela Rascon) Diabetes mellitus, type II Diverticulitis Hiatal hernia with gastroesophageal reflux disease and esophagitis Hyperlipidemia Tear of medial meniscus of left knee Surgical History Surgical History Derange posterior horn lateral meniscus left knee due to old injury s/p L knee arthroscopy 10/22/2019 History of bilateral carpal tunnel release History of cholecystectomy History of partial colectomy Hx of hysterectomy Tobacco Smoking/Tobacco Use Status: Former Tobacco Use Alcohol Alcohol Intake: current Alcohol intake frequency: a few times a week Alcohol type: hard liquor Substance Use Substance use: Never Substance use type: does not use and marijuana Details: smokes marijuana for pain and for sleep occasionally. Marijuana: t-3, couple hits. Alcohol: t-4, couple drinks Vital Signs and Lab Results Lab Results Blood Type / Crossmatch: No Data to Display Complete Blood Count: No Data to Display Complete Metabolic Panel: No Data to Display Liver Function Panel: No Data to Display Coagulation Panel: No Data to Display Cardiac Panel: No Data to Display Arterial Blood Gas: No Data to Display Venous Blood Gas: No Data to Display Pancreas Panel: No Data to Display Thyroid Panel: No Data to Display Infectious Disease: Coronavirus (COVID-19)(PCR) Negative (Negative) 06/29/21 10:40 06/29/21 Coronavirus 2019 Source Nasal/Nares 06/29/21 10:40 06/29/21 Blood Cultures: No Data to Display Toxicology Panel: No Data to Display Anesthesia Assessment and Plan Anesthesia History Personal History: No History of Anesthesia Complications Family History: No Family History of Anesthesia Complications Exercise Tolerance Exercise Tolerance: Metabolic Equivalents>4 Cardiac & Pulmonary Exam Cardiac Exam: Normal S1/S2 Heart Sounds Pulmonary Exam: Clear Bilateral Breath Sounds Airway Exam Known Difficult Airway: No Mallampati Class: 2 Mouth Opening: Normal (> 3cm) Thyromental Distance: Greater than 3 cm Neck Range of Motion: Full ROM Neck Circumference: Thick Teeth Condition: Removable Dentures/Plates Upper ASA Classification ASA Score: ASA 2 Emergency Case?: No NPO Status NPO Status: NPO Clears >2 hours, Solids >8 hours Anesthesia Plan Resuscitation Status: Full Code Anesthesia Technique: Spinal Anesthesia Airway Planned: Natural Airway Pain Management: Surgeon and patient request nerve block Monitors Used: Standard Monitors
[2021-06-30] MEDS: Lactated Ringers 1,000 ML 80 ML IV (08:30)
[2021-06-30] MEDS: ceFAZolin 2 GM/50 ML BAG IVPB (09:28)
--- NOTE | 2021-06-30 09:57 | W.ANESNERVE ---
Nerve Block Single Injection Procedure Date and Time Date Performed: 06/30/21 Procedure Start: 09:18 Location Where Procedure Performed Procedure Location: PACU Reason Performed: Postoperative Analgesia Requesting Provider: León Samuel Timeout Performed Timeout Performed: Yes Monitoring Used ECG, Blood Pressure and SpO2 Sterility Sterility: Hand Hygiene, Surgical Cap, Surgical Mask, Sterile Gloves, Eye Protection and Chlorhexidine Sedation Given During Procedure Sedation Given (Indicate Dose Given): No Sedation given Patient Mental Status Patient Mental Status: Awake Nerve Block 1st Nerve Block: Laterality: Left Block Type: Adductor Canal Needle / Catheter Used: 100mm SonoPlex II Local Anesthetic Bolus (Indicate Dose Given): Lidocaine used for local infiltration of skin, Injected in 3-5ml increments after negative blood aspiration, Bupivacaine 0.5% Dose:: 10 mL and Exparel Dose:: 10 mL Additives (Indicate Dose Given): None Ultrasound: Sterile probe cover and gel used Ultrasound Image Saved?: Yes Nerve Stimulator: Not Used Paresthesia: None Procedure Tolerated: No Complications Procedure Outcome: Successful Performed By: Minnie Cantu
[2021-06-30] MEDS: Bupivacaine 0.5% Pres-Free 30 ML VIAL (10:12)
--- NOTE | 2021-06-30 12:30 | W.ANESPOSTOP ---
Postoperative Evaluation Date, Time and Location Date Performed: 06/30/21 Time Performed: 12:30 Patient Location: Day Surgery Unit Vital Signs Most Recent Imported Vital Signs: Most Recent Vital Signs Temp Pulse Resp BP Pulse Ox 36.2 C L 68 18 173/86 H 97 06/30/21 11:25 06/30/21 11:25 06/30/21 11:25 06/30/21 11:25 06/30/21 11:25 Pain Score Most Recent Pain Score: Most Recent Pain Score Pain Level 0 06/30/21 11:25 Assessment Mental Status: Awake (Alert & Oriented to Patient Baseline) Airway and Respiratory Function: Patent airway with normal (patient baseline) respiratory exam Cardiovascular Function: Hemodynamically Stable Hydration Status: Adequately Hydrated Nausea & Vomiting: No Nausea or Vomiting Pain: Pt. Denies Any Pain Peripheral Nerve Block: Regional nerve block not resolved at time of post operative discharge
--- NOTE | 2021-06-30 13:53 | ROE_ITS ---
Date of service: 06/30/21 Time of Service: 10:18 Operative Note Operative Note DATE OF PROCEDURE: 06/30/21 PRE-OP DIAGNOSIS: Left Knee Medial and Lateral Meniscus Tears POST-OP DIAGNOSIS: same Left knee medial femur chondromalacia, Grade IV PROCEDURE: Left Knee Arthroscopic Partial Lateral and Medial Menisectomies SURGEON: León Samuel ANESTHESIA TYPE: Spinal Refer to Anesthesia Record ESTIMATED BLOOD LOSS: 5 PATHOLOGY: none sent TOURNIQUET TIME: 0 COMPLICATIONS: None Patient was transported to: PACU Patient's condition: stable Indications: I have seen All in clinic for symptoms of a meniscus tear. This was confirmed based on MRI and exam findings. Nonoperative measures were exhausted but disability and pain persisted. I discussed knee arthroscopy with meniscal intervention with the patient. I reviewed the risks of the procedure to include, but not limited to, bleeding, infection, pain, stiffness, damage to nerves or vessels, recurrence, blood clot. Despite these risks, the patient elected to proceed. Findings: A diagnostic arthroscopy was performed with the following findings: Suprapatellar Pouch: Mild inflammatory change, No loose bodies Medial Compartment: Complex medial meniscal tear, Intact meniscal root, Focal Gr jerrod IV chondromalacia of the central femur with some surrounding Grade II/III for a majority of the weightbearing surface, Grade II chondromalacia of the tibia, No loose bodies Notch: ACL and PCL were intact Lateral Compartment: Horizontal tear just lateral to the root but not extending into the meniscal root], Some Grade I chondromalacia and focal areas of Grade II, No loose bodies Patellofemoral Compartment: Grade II chondromalacia, No apparent patellar maltracking Procedure Description: All was greeted in the preoperative holding area where t he correct side was identified and marked. The consent was reviewed with the patient and signed. The history and physical was updated. All questions were answered. All was taken back to the operating room. The patient was placed into the supine position on the operating room table. A nonsterile tourniquet was placed high onto the leg but not used. All bony prominences were well padded. Pr ophylactic antibiotics in the form of Cefazolin were administered. The left leg was then prepped with Chloraprep and draped in a standard fashion with stockinette and extremity drape. A timeout to confirm correct identity, side and site, procedure, allergies, anesthesia, and medical concerns was performed. The leg was placed into a pneumatic leg chatterjee, SPIDER2. A standard lateral portal was made at the lateral border of the patella tendon in line with the inferior pole of the patella, soft spot. The skin and deep tissue was incised sharply and the blunt trochar was inserted atraumatically. A diagnostic arthroscopy was performed and the findings are listed above. The suprapatellar pouch had mild inflammatory change. The patellofemoral articulation showed grade II chondromalacia as well as good tracking. The lateral gutter had no loose bodies and the medial gutter had no loose bodies. The knee was brought into some valgus stress in extension to open the medial compartment. A medial portal was made, localized by a spinal needle. The portal was created with an #11 blade through skin and capsule under direct visualization avoiding any meniscal injury. A probe was then inserted into the medial compartment. The medial compartment was fully inspected. The chondral surface of the tibia showed grade II chondromalacia and the surface of the femur showed some diffuse grade II/III chondromalacia and a central area of grade IV chondromalacia measuring 4 x 4 mm with exposed bone. The medial meniscus had a complex tear of the posterior horn. After evaluation, the meniscus was debrided down to a stable base using a series of biters and arthroscopic esther. It was probed afterwards to confirm that the tear had been removed and the meniscus was stable. The notch was then inspected which showed an intact ACL and an intact PCL. The leg was then brought into a figure of 4 position. The lateral compartment was fully inspected with the arthroscope and a probe. The chondral surface of the lateral femur showed grade I chondromalacia with some focal areas of grade 2. The chondral surface of the lateral tibia showed grade I chondromalacia. The lateral meniscus had central tear located just lateral to the posterior root. It did not completely disrupt the peripheral fibers. After evaluation, the meniscus was debrided down to a stable base using a series of biters and arthroscopic esther. It was probed afterwards to confirm that the tear had been removed and the meniscus was stable. The arthroscope was brought back into the suprapatellar pouch and the leg was in full extension. The knee was thoroughly irrigated with the arthroscopic fluid on high flow and pressure. Inflow was stopped and excess fluid was removed. The wounds were closed with 4-0 Nylon. The soft tissues and the deep tissues about the knee were injected with 0.5% bupivacaine. The wounds were dressed with Xeroform, 4x4 gauze, ABD pad, Kerlix and an KIERAN wrap. A cryo-cuff was ap plied. The patient tolerated the procedure well and was returned to the Same Day Surgery area in a stable condition suffering no known complication.
== END 2021-06-30 12:39 | disposition home or self-care (01) ==
PROVIDERS: PCP Internal Medicine; Visit Provider Student in an Organized Health Care Education/Training Program
PROC: (CPT 29870; principal; 2021-06-30 10:00)
DX: M23.262 Derangement of other lateral meniscus due to old tear or injury, left knee (principal); M23.232 Derangement of other medial meniscus due to old tear or injury, left knee; M94.262 Chondromalacia, left knee; E11.9 Type 2 diabetes mellitus without complications; E78.5 Hyperlipidemia, unspecified
CPT/HCPCS: 29880; J0690; J1100; J2250

== ENCOUNTER → 2021-07-13 09:48 | Outpatient (BNVA) | payer MEDICARE, SELFPAY | PROVIDERS: PCP Internal Medicine; Referring Provider Internal Medicine | DX: Z47.89 Encounter for other orthopedic aftercare (principal); M23.92 Unspecified internal derangement of left knee ==

== ENCOUNTER 2022-02-10 19:20 | Outpatient (REF) | payer MEDICARE, SELFPAY ==
[2022-02-10 21:13] LABS: Anion Gap 9.6 mmol/L (3-11); BUN 28 mg/dL (7-18); CO2 25.4 mmol/L (21.0-32.0); CREATININE 1.2 mg/dL (0.55-1.02); Calcium 8.9 mg/dL (8.5-10.1); Chloride 108 mmol/L (98-107); Estimated GFR 43.34 (mL/min/1.73m2); Glucose 125 mg/dL (74-106); Potassium 4.7 mmol/L (3.5-5.1); Sodium 143 mmol/L (136-145)
== END 2022-02-10 19:21 | disposition home or self-care (01) ==
LOC: NCHCN 19:20
PROVIDERS: PCP Internal Medicine; Visit Provider Physician Assistant
DX: E11.9 Type 2 diabetes mellitus without complications (principal)
CPT/HCPCS: 80048

== ENCOUNTER 2022-05-12 10:38 | Outpatient (REF) | payer MEDICARE, SELFPAY ==
[2022-05-12 20:17] LABS: Abs Immature Grans 0.02 10^3/uL (0.0-0.06); Absolute Basophil Count 0.04 10^3/uL (0.0-0.2); Absolute Eosinophil Count 0.18 10^3/uL (0.0-0.7); Absolute Lymphocyte Count 1.93 10^3/uL (1.2-3.4); Absolute Monocyte Count 0.52 10^3/uL (0.1-0.8); Absolute Neutrophil Count 3.16 10^3/uL (1.2-6.7); Basophils % 0.7; Eosinophils % 3.1; HCT 39.4 % (36.0-46.0); HGB 12.8 g/dL (11.2-15.7); Immature Grans % 0.3; MCH 30.7 pg (27.0-33.0); MCHC 32.5 % (32.0-36.0); MCV 95 fL (80-95); MPV 10.9 fL (8.0-11.0); Monocytes % 8.9; Platelet Count 289 10^3/uL (130-400); RBC 4.17 10^6/uL (3.93-5.22); RDW 13.2 % (11.7-14.6); RDW-SD 46.4 fL; WBC 5.85 10^3/uL (4.4-10.8)
[2022-05-12 20:52] LABS: ALT 28 U/L (14-59); AST 26 U/L (15-37); Albumin 3.4 g/dL (3.4-5.0); Alkaline Phosphatase 67 U/L (46-116); Anion Gap 9.2 mmol/L (3-11); BUN 24 mg/dL (7-18); Bilirubin, Total 0.4 mg/dL (0.2-1.0); CO2 25.8 mmol/L (21.0-32.0); CREATININE 1.1 mg/dL (0.55-1.02); Calcium 8.8 mg/dL (8.5-10.1); Chloride 106 mmol/L (98-107); Estimated GFR 51.11 (mL/min/1.73m2); Glucose 78 mg/dL (74-106); Magnesium 1.9 mg/dL (1.8-2.4); Potassium 4.4 mmol/L (3.5-5.1); Sodium 141 mmol/L (136-145); TSH (W/Ref FT4) 5.14 uIU/mL (0.36-3.74); Total Protein 6.9 g/dL (6.4-8.2)
[2022-05-12 21:16] LABS: FREE T4 0.74 ng/dL (0.76-1.46)
== END 2022-05-12 10:39 | disposition home or self-care (01) ==
LOC: NCHCN 10:38
PROVIDERS: PCP Internal Medicine; Visit Provider Physician Assistant
DX: R61 Generalized hyperhidrosis (principal); E11.9 Type 2 diabetes mellitus without complications; R25.2 Cramp and spasm
CPT/HCPCS: 80053; 83735; 84439; 84443; 85025

== ENCOUNTER 2022-08-10 18:30 | Outpatient (REF) | payer MEDICARE, SELFPAY ==
[2022-08-10 19:13] LABS: TSH (W/Ref FT4) 0.59 uIU/mL (0.36-3.74)
== END 2022-08-10 18:31 | disposition home or self-care (01) ==
LOC: NCHCN 18:30
PROVIDERS: PCP Internal Medicine; Visit Provider Physician Assistant
DX: E03.9 Hypothyroidism, unspecified (principal)
CPT/HCPCS: 84443

== ENCOUNTER 2022-11-11 16:27 | Outpatient (REF) | payer MEDICARE, SELFPAY ==
[2022-11-11 18:59] LABS: Abs Immature Grans 0.01 10^3/uL (0.0-0.06); Absolute Basophil Count 0.01 10^3/uL (0.0-0.2); Absolute Eosinophil Count 0.04 10^3/uL (0.0-0.7); Absolute Lymphocyte Count 1.24 10^3/uL (1.2-3.4); Absolute Monocyte Count 0.45 10^3/uL (0.1-0.8); Basophils % 0.3; HCT 40.5 % (36.0-46.0); HGB 12.6 g/dL (11.2-15.7); Immature Grans % 0.3; Lymphocytes % 31.1; MCH 29.4 pg (27.0-33.0); MCHC 31.1 % (32.0-36.0); MCV 95 fL (80-95); MPV 10.6 fL (8.0-11.0); Monocytes % 11.3; Platelet Count 246 10^3/uL (130-400); RBC 4.28 10^6/uL (3.93-5.22); RDW 13.1 % (11.7-14.6); RDW-SD 45.4 fL; WBC 3.99 10^3/uL (4.4-10.8)
[2022-11-11 19:05] LABS: Absolute Neutrophil Count 2.23 10^3/uL (1.2-6.7)
[2022-11-11 19:17] LABS: ALT 29 U/L (14-59); AST 26 U/L (15-37); Albumin 3.4 g/dL (3.4-5.0); Alkaline Phosphatase 93 U/L (46-116); Anion Gap 9.4 mmol/L (3-11); BUN 20 mg/dL (7-18); Bilirubin, Total 0.3 mg/dL (0.2-1.0); CO2 25.6 mmol/L (21.0-32.0); Calcium 8.7 mg/dL (8.5-10.1); Chloride 108 mmol/L (98-107); Estimated GFR 57.31 (mL/min/1.73m2); Glucose 189 mg/dL (74-106); NT-proBNP 356 pg/mL (<300); Potassium 4.1 mmol/L (3.5-5.1); Sodium 143 mmol/L (136-145); Total Protein 6.6 g/dL (6.4-8.2)
[2022-11-11 19:59] LABS: Troponin I 72 ng/L (<or=60)
== END 2022-11-11 16:28 | disposition home or self-care (01) ==
LOC: NCHCN 16:27
PROVIDERS: PCP Internal Medicine; Visit Provider Physician Assistant
DX: R06.02 Shortness of breath (principal); R07.89 Other chest pain; R63.4 Abnormal weight loss; R53.83 Other fatigue
CPT/HCPCS: 80053; 83880; 84484; 85025

== ENCOUNTER 2022-12-17 11:20 | Outpatient (CLI) | payer MEDICARE, SELFPAY ==
--- NOTE | 2022-12-17 10:30 | DI.RAD_ITS ---
Exam(s) XR KNEE LT 3V AP,LAT,EVELINA EXAM: XR KNEE LT 3V AP,LAT,EVELINA CLINICAL HISTORY: LEFT KNEE PAIN. TECHNIQUE: 2D digital imaging was performed of the left knee. Three images were obtained. AP, late ral and PA tunnel views were obtained. COMPARISON: CR XR KNEE LT 2V AP,LAT from 01/09/2020 FINDINGS: BONES: No acute fracture is present. No bony destructive lesion is seen. JOINTS: The knee is normally aligned. There is moderate narrowing of the medial femoral tibial joint. There is moderate narrowing of the patellofemoral joint. Periarticular spurring is seen both in th e medial femoral tibial joint and the patellofemoral joint. There is a tiny joint effusion present. SOFT TISSUE: Atherosclerosis is present. IMPRESSION: Moderate osteoarthritis of the left knee. DATA REPOSITORY: RADIATION DOSE DELIVERED:
== END 2022-12-17 11:21 | disposition home or self-care (01) ==
LOC: DIORS 11:20
PROVIDERS: PCP Internal Medicine; Referring Provider Internal Medicine; Visit Provider Student in an Organized Health Care Education/Training Program
DX: M23.8X2 Other internal derangements of left knee; M17.12 Unilateral primary osteoarthritis, left knee
CPT/HCPCS: 20610; 73562; J1040

== ENCOUNTER 2023-01-12 17:27 | Outpatient (REF) | payer MEDICARE, SELFPAY ==
[2023-01-12 22:45] LABS: Abs Immature Grans 0.01 10^3/uL (0.0-0.06); Absolute Basophil Count 0.03 10^3/uL (0.0-0.2); Absolute Eosinophil Count 0.09 10^3/uL (0.0-0.7); Absolute Monocyte Count 0.58 10^3/uL (0.1-0.8); Absolute Neutrophil Count 3.45 10^3/uL (1.2-6.7); Basophils % 0.5; Eosinophils % 1.5; HCT 36.5 % (36.0-46.0); HGB 11.8 g/dL (11.2-15.7); Immature Grans % 0.2; Lymphocytes % 30.2; MCH 30.6 pg (27.0-33.0); MCHC 32.3 % (32.0-36.0); MCV 95 fL (80-95); MPV 10.7 fL (8.0-11.0); Monocytes % 9.7; Neutrophils % 57.9; Platelet Count 354 10^3/uL (130-400); RBC 3.85 10^6/uL (3.93-5.22); RDW 13.3 % (11.7-14.6); RDW-SD 46.5 fL; WBC 5.96 10^3/uL (4.4-10.8)
[2023-01-12 22:58] LABS: ALT 23 U/L (14-59); AST 22 U/L (15-37); Albumin 3.5 g/dL (3.4-5.0); Alkaline Phosphatase 94 U/L (46-116); Anion Gap 9.7 mmol/L (3-11); BUN 18 mg/dL (7-18); Bilirubin, Total 0.4 mg/dL (0.2-1.0); CO2 27.3 mmol/L (21.0-32.0); CREATININE 1.2 mg/dL (0.55-1.02); Calcium 9.5 mg/dL (8.5-10.1); Chloride 106 mmol/L (98-107); Estimated GFR 45.76 (mL/min/1.73m2); Glucose 120 mg/dL (74-106); Potassium 4.4 mmol/L (3.5-5.1); Sodium 143 mmol/L (136-145); Total Protein 7.3 g/dL (6.4-8.2)
[2023-01-12 23:43] LABS: C Diff PCR Positive (Negative)
[2023-01-14 11:55] LABS: Campylobacter PCR Negative (Negative); Salmonella PCR Negative (Negative); Shiga Toxin PCR Negative (Negative); Shigella/Enteroinvasive Ecoli Negative (Negative)
== END 2023-01-12 17:28 | disposition home or self-care (01) ==
LOC: NCHCN 17:27
PROVIDERS: PCP Internal Medicine; Visit Provider Physician Assistant
DX: R19.7 Diarrhea, unspecified (principal)
CPT/HCPCS: 80053; 87493; 87505; 83630; 85025

== ENCOUNTER → 2023-03-28 12:43 | Outpatient (BNVA) | payer MEDICARE, SELFPAY | PROVIDERS: PCP Internal Medicine; Referring Provider Internal Medicine | DX: M17.12 Unilateral primary osteoarthritis, left knee (principal) | CPT/HCPCS: 20610; J1040 ==

== ENCOUNTER 2023-05-10 13:05 | Outpatient (REF) | payer MEDICARE, SELFPAY ==
[2023-05-10 19:29] LABS: TSH (W/Ref FT4) 4.36 uIU/mL (0.36-3.74)
[2023-05-10 21:09] LABS: FREE T4 0.73 ng/dL (0.76-1.46)
== END 2023-05-10 13:06 | disposition home or self-care (01) ==
LOC: NCHCN 13:05
PROVIDERS: PCP Internal Medicine; Visit Provider Physician Assistant
DX: E03.9 Hypothyroidism, unspecified (principal)
CPT/HCPCS: 84439; 84443

== ENCOUNTER → 2023-07-04 09:20 | Outpatient (BNVA) | payer MEDICARE, SELFPAY | PROVIDERS: PCP Internal Medicine; Referring Provider Internal Medicine | DX: M17.12 Unilateral primary osteoarthritis, left knee (principal) | CPT/HCPCS: 20610; J1040 ==

== ENCOUNTER 2023-08-10 12:50 | Outpatient (REF) | payer MEDICARE, SELFPAY ==
[2023-08-10 21:04] LABS: TSH (W/Ref FT4) 3.28 uIU/mL (0.36-3.74)
== END 2023-08-10 12:51 | disposition home or self-care (01) ==
LOC: NCHCN 12:50
PROVIDERS: PCP Internal Medicine; Visit Provider Physician Assistant
DX: E03.9 Hypothyroidism, unspecified (principal)
CPT/HCPCS: 84443

== ENCOUNTER 2023-10-12 15:34 | Outpatient (REF) | payer MEDICARE, SELFPAY ==
[2023-10-12 20:29] LABS: ESR 15 mm/hr (0-30)
[2023-10-12 20:31] LABS: Absolute Basophil Count 0.04 10^3/uL (0.0-0.2); Absolute Eosinophil Count 0.15 10^3/uL (0.0-0.7); Absolute Lymphocyte Count 1.75 10^3/uL (1.2-3.4); Absolute Monocyte Count 0.51 10^3/uL (0.1-0.8); Absolute Neutrophil Count 3.54 10^3/uL (1.2-6.7); Basophils % 0.7; Eosinophils % 2.5; HCT 39.1 % (36.0-46.0); HGB 12.4 g/dL (11.2-15.7); Lymphocytes % 29.2; MCH 30.2 pg (27.0-33.0); MCHC 31.7 % (32.0-36.0); MCV 95 fL (80-95); MPV 10.8 fL (8.0-11.0); Monocytes % 8.5; Neutrophils % 59.1; Platelet Count 309 10^3/uL (130-400); RBC 4.11 10^6/uL (3.93-5.22); RDW 13.2 % (11.7-14.6); RDW-SD 46.4 fL; WBC 5.99 10^3/uL (4.4-10.8)
[2023-10-12 20:51] LABS: ALT 26 U/L (14-59); AST 21 U/L (15-37); Albumin 3.6 g/dL (3.4-5.0); Alkaline Phosphatase 71 U/L (46-116); Anion Gap 9.3 mmol/L (3-11); BUN 27 mg/dL (7-18); Bilirubin, Total 0.4 mg/dL (0.2-1.0); C-Reactive Protein 0.12 mg/dL (0.0-0.3); CO2 25.7 mmol/L (21.0-32.0); CREATININE 1.3 mg/dL (0.55-1.02); Calcium 9.3 mg/dL (8.5-10.1); Chloride 107 mmol/L (98-107); Creatine Kinase 120 U/L (26-192); Estimated GFR 41.57 (mL/min/1.73m2); Glucose 133 mg/dL (74-106); Potassium 4.7 mmol/L (3.5-5.1); Sodium 142 mmol/L (136-145); TSH (W/Ref FT4) 4.74 uIU/mL (0.36-3.74); Total Protein 6.8 g/dL (6.4-8.2)
== END 2023-10-12 15:35 | disposition home or self-care (01) ==
LOC: NCHCN 15:34
PROVIDERS: PCP Internal Medicine; Visit Provider Physician Assistant
DX: M79.604 Pain in right leg (principal)
CPT/HCPCS: 80053; 82550; 85652; 84439; 84443; 85025; 86140

== ENCOUNTER 2023-11-24 19:47 | Outpatient (REF) | payer MEDICARE, SELFPAY ==
[2023-11-24 19:32] LABS: Anion Gap 9.6 mmol/L (3-11); BUN 22 mg/dL (7-18); CO2 25.4 mmol/L (21.0-32.0); CREATININE 1.2 mg/dL (0.55-1.02); Calcium 9.3 mg/dL (8.5-10.1); Chloride 106 mmol/L (98-107); Estimated GFR 45.76 (mL/min/1.73m2); Glucose 137 mg/dL (74-106); Potassium 4.2 mmol/L (3.5-5.1); Sodium 141 mmol/L (136-145); TSH 1.28 uIU/Ml (0.36-3.74)
== END 2023-11-24 19:48 | disposition home or self-care (01) ==
LOC: NCHCN 19:47
PROVIDERS: PCP Internal Medicine; Referring Provider Physician Assistant; Visit Provider Physician Assistant
DX: E03.9 Hypothyroidism, unspecified (principal); N18.30 Chronic kidney disease, stage 3 unspecified
CPT/HCPCS: 80048; 84443

== ENCOUNTER → 2024-01-12 13:27 | Outpatient (BNVA) | payer MEDICARE, SELFPAY | PROVIDERS: PCP Internal Medicine; Referring Provider Internal Medicine | DX: M17.12 Unilateral primary osteoarthritis, left knee (principal) | CPT/HCPCS: 20610; J1010 ==

== ENCOUNTER → 2024-03-12 13:34 | Outpatient (BNVA) | payer MEDICARE, SELFPAY | PROVIDERS: PCP Internal Medicine; Referring Provider Physician Assistant; Visit Provider Student in an Organized Health Care Education/Training Program | DX: M17.12 Unilateral primary osteoarthritis, left knee (principal) | CPT/HCPCS: 99213 ==

== ENCOUNTER 2024-04-12 04:31 | Outpatient (CLI) | payer MEDICARE, SELFPAY ==
[2024-04-12 15:13] LABS: HCT 40.9 % (36.0-46.0); HGB 13.1 g/dL (11.2-15.7); MCH 30.6 pg (27.0-33.0); MCV 96 fL (80-95); MPV 9.5 fL (8.0-11.0); Platelet Count 262 10^3/uL (130-400); RBC 4.28 10^6/uL (3.93-5.22); RDW 13.2 % (11.7-14.6); RDW-SD 46.8 fL; WBC 7.28 10^3/uL (4.4-10.8)
[2024-04-12 16:10] LABS: Anion Gap 10.3 mmol/L (3-11); BUN 17 mg/dL (7-18); CO2 27.7 mmol/L (21.0-32.0); CREATININE 1.3 mg/dL (0.55-1.02); Calcium 9.4 mg/dL (8.5-10.1); Chloride 104 mmol/L (98-107); Estimated GFR 41.31 (mL/min/1.73m2); Glucose 74 mg/dL (74-106); Potassium 3.9 mmol/L (3.5-5.1); Sodium 142 mmol/L (136-145)
== END 2024-04-12 04:32 | disposition home or self-care (01) ==
LOC: LBO 04:32
PROVIDERS: PCP Internal Medicine; Visit Provider Student in an Organized Health Care Education/Training Program
DX: Z01.818 Encounter for other preprocedural examination (principal); M17.12 Unilateral primary osteoarthritis, left knee
CPT/HCPCS: 36415; 80048; 85027

== ENCOUNTER 2024-04-12 14:42 | Outpatient (CLI) | payer MEDICARE, SELFPAY ==
--- NOTE | 2024-04-12 14:33 | DI.RAD_ITS ---
Exam(s) XR STANDING ALIGNMENT EXAM: XR STANDING ALIGNMENT CLINICAL HISTORY: TKR Planning. TECHNIQUE: 2D digital imaging was performed. Standing AP views were performed from the pelvis throu gh the ankles. COMPARISON: CR XR TIB/FIB LT from 08/31/2019 CR XR KNEE LT 3V AP,LAT,EVELINA from 12/17/2022 FINDINGS: BONES: No acute fracture is present. No bony destructive lesion is seen. Leg length discrepancy: No significant overall leg length discrepancy. JOINTS: Knees: Moderate to severe narrowing of the medial femoral tibial joint space of the left knee . Right knee joint spaces are maintained. The ankle joints are unremarkable. The hip joint spaces are maintained. Acetabular spurring. SOFT TISSUE: Vascular calcifications. IMPRESSION: Moderate to severe degenerative changes of the medial femoral tibial joint space of the left knee. No significant leg length discrepancy. DATA REPOSITORY: RADIATION DOSE DELIVERED:
== END 2024-04-12 14:43 | disposition home or self-care (01) ==
LOC: DIORS 14:42
PROVIDERS: PCP Physician Assistant; Visit Provider Physician Assistant
DX: M17.12 Unilateral primary osteoarthritis, left knee (principal); Z01.818 Encounter for other preprocedural examination
CPT/HCPCS: 77073

== ENCOUNTER 2024-04-24 08:59 | Day surgery (SDC) | payer MEDICARE, SELFPAY ==
[2024-04-24] VITALS (20 sets, daily range): BP systolic 132–181; BP diastolic 40–86; PULSE 50–73; RESP 13–22; TEMP 36–36.5; O2SAT 93–99; BMI 35.4
[2024-04-24] MEDS: Celecoxib 200 MG CAP 400 MG PO (09:56)
[2024-04-24] MEDS: Gabapentin 300 MG CAP PO (09:56)
--- NOTE | 2024-04-24 10:24 | DSE_ITS ---
Date of service: 04/24/24 Time of Service: 10:29 Discharge Plan Disposition Patient Disposition: Home Condition: Good Discharge Details Reason For Visit: Left knee DJD Attending Provider: León Samuel Primary Care Provider: Nelly Feliciano Home Meds and New Rx's Prescriptions: New aspirin 81 mg tablet,delayed release (DR/EC) 81 mg PO BID 30 Days Qty: 60 0RF acetaminophen 500 mg tablet 1,000 mg PO Q8H PRN Qty: 90 0RF Rx Instructions: Take two tablets up to every 8 hours as needed for pain pantoprazole 40 mg tablet,delayed release (DR/EC) 40 mg PO DAILY Qty: 14 0RF dexamethasone 4 mg tablet 4 mg PO DAILY Qty: 2 0RF Rx Instructions: Take one tablet once daily for two days docusate sodium [Colace] 100 mg capsule 100 mg PO BID Qty: 30 0RF gabapentin 300 mg capsule 300 mg PO QHS Qty: 14 0RF Rx Instructions: Take one tablet at bedtime oxycodone 5 mg tablet 5 mg PO Q4H PRNQty: 18 0RF Rx Instructions: Take one tablet up to every 4 hours as needed for severe postoperative pain Continued potassium chloride 10 mEq capsule, extended release 10 meq PO DAILY atorvastatin 80 mg tablet 80 mg PO QHS ondansetron HCl 4 mg tablet 4 mg PO QAM PRN pramipexole 0.75 mg tablet 0.75 mg PO DAILY levothyroxine 50 mcg tablet 50 mcg PO DAILY nitroglycerin 0.4 mg tablet, sublingual 0.4 mg sublingual Q5M PRN Rx Instructions: do not exceed 3 doses per episode losartan 50 mg tablet 50 mg PO DAILY Jardiance 10 mg tablet 10 mg PO DAILY amlodipine 5 mg tablet 5 mg PO DAILY metoprolol succinate 50 mg tablet extended release 24 hr 50 mg PO DAILY dexlansoprazole [Dexilant] 60 mg capsule,biphase delayed releas 60 mg PO DAILY furosemide 20 mg tablet 20 mg PO DAILY insulin glargine [Lantus Solostar U-100 Insulin] 100 unit/mL (3 mL) insulin pen 36 unit subcut HS simvastatin 40 MG tablet 40 mg PO QPM magnesium 250 mg Tablet 250 mg PO DAILY Calcium 600 + D(3) 600 mg calcium- 200 unit Capsule 1 cap PO DAILY Discontinued hydrocodone-acetaminophen 5-325 mg tablet 1 tab PO BID PRN aspirin [Aspir-81] 81 MG tablet,delayed release (DR/EC) 81 mg PO DAILY acetaminophen 500 mg tablet 500 mg PO Q6H PRN PRN (Reason: pain) Qty: 60 3RF No Action ibuprofen 600 mg tablet 600 mg PO Q8H PRN (Reason: pain) Qty: 60 1RF Rx Instructions: Take one tablet up to every 8 hours for pain and inflammation oxycodone 10 mg tablet 10 mg PO Q4H MDD 6 tabs PRN (Reason: pain) Qty: 20 0RF Discharge Instructions Additional Instructions: Total Knee Discharge Instructions Activity: The most important activity is to walk and to work on gentle motion (both flexion and extension). You should try to take short walks a few times a day. It is important that when resting you work on keeping the knee straight. Avoid putting a pillow behind the knee as this will encourage flexion. Work on range of motion exercises as provided by Physical Therapy. - Start outpatient physical therapy within 2 weeks. - You should wear the CELENA hose on both legs for 2 weeks. You may remove these at night. You may also use any compression sock in place of the CELENA hose. - Utilize [employer] to review exercises, see videos on exercises and obtain basic information pertaining to your surgery and your recovery. Dressing: Remove the Sami wrap by 2 days after your surgery and put on the CELENA stocking given to you from the hospital. Keep the surgical dressing (underneath the SAMI wrap) in place for at least one week. After the first week it may be removed and replaced with light gauze and tape or nothing. The wound and dressing may get wet after 3 days but avoid soaking the dressing or otherwise it will need to be changed. Many people prefer covering the dressing with cling wrap (saran wrap) to minimize it from getting soaked. If it gets wet, just pat dry. If it starts to peel off then it will need to be changed. Medications: - You should take Tylenol and anti-inflammatory Meloxicam as your primary pain control medications. If the Meloxicam is too expensive or not covered, please call the office for another alternative (Advil/Ibuprofen or Naproxen/Aleve) - You have been prescribed a stronger pain medication Oxycodone for breakthrough pain, take as needed as prescribed. - You have also been prescribed a stomach acid reduction agent Pantoprozole to help reduce stomach acid and reflux. - You have been prescribed Gabapentin to take at night for restlessness and nerve pain. - You will be taking Aspirin 81mg twice a day for DVT prevention unless instructed otherwise. - You have also been prescribed Decadron to take to control post-operative nausea and pain. You will start this tomorrow. - If you have constipation you should take Colace (which has been prescribed) or Miralax (which is available [id number]). It takes most people 3-4 days to have a bowel movement. Follow-up: 2 weeks If you have any acute concerns or questions, please do not hesitate to contact the office at [phone]. You may contact Dr. Samuel with any questions after hours through the hospital at [phone] or on his cell phone at [phone]. Stand Alone Forms: Anesthesia Discharge Inst., Anes.Nerve Block Instructions, Elba Amaro ([facility]) Referrals: León Samuel MD [ [facility] STAFF PHYSICIAN] - 05/07/24 1:45 pm Equipment/Supplies: Walker Activity:: Elevate Remove Dressings/Wound Care:: Do Not Remove Shower/Bathe:: Cover Diet:: As Tolerated Discharge Orders Discharge Orders: Discharge Order (Routine); Ordered 04/24/24 Ordered By: Didi Charles Discharge Data Discharge Date/Time-TO BE ENTERED AT DEPARTURE: 04/24/24 16:46 Discharge Comment: pt wheeled out of [facility] DS: Summary Time Spent with Patient providing and/or coordinating discharge services: Less than 30 minutes Status at Discharge Functional status at discharge: uses cane/walker Overall status at discharge: patient is progressing back to baseline Mental Status: mental status grossly normal Speech and Movement: speech and movement normal Mood: congruent mood Affect: normal affect Quality:SDOH Health Related Social Needs: No Data to Display Exam Psych Mental Status: mental status grossly normal Speech and Movement: speech and movement normal Mood: congruent mood Affect: normal affect DS: Data Vitals/I&O Vitals and I&O: Vital Signs Temperature 97.7 F 04/24/24 09:59 Pulse 73 04/24/24 09:59 Pulse Rhythm Regular 04/24/24 09:59 Respiratory Rate 18 04/24/24 09:59 Respiratory Depth Normal 04/24/24 09:59 Blood Pressure 180/53 H 04/24/24 09:59 Pulse Oximetry 97 04/24/24 09:59 Oxygen Delivery Method Room Air 04/24/24 09:59 Oxygen Flow Rate 0 04/24/24 09:59 Pain Level 0 04/24/24 09:59 Intake & Output 04/23/24 04/23/24 04/24/24 11:59 23:59 11:59 Weight 181 lb 10.574 oz Other: Voiding Methods Toilet PFSH All Active Problems (Updated 04/25/24 @ 13:18 by Perri Cee RN) History of total left knee replacement (Acute 04/24/24) Internal derangement of left knee (Acute) s/p partial medial and lateral menisectomies DOS 06/30/2021 Pes anserine bursitis (Acute) Derange posterior horn lateral meniscus left knee due to old injury (Acute) s/p L knee arthroscopy 10/22/2019 Hyperlipidemia (Acute) Diverticulitis (Chronic) Hiatal hernia with gastroesophageal reflux disease and esophagitis (Acute) Irritable bowel syndrome (Chronic) Diabetes mellitus, type II (Acute) [place] (actinic keratosis) (Acute) Health care maintenance (Acute) Contracture of joint of right hand (Acute) Basal cell carcinoma, face (Acute) Osteoarthritis (Chronic) Wrist pain, right (Acute) Medical History (Updated 04/25/24 @ 13:18 by Perri Cee RN) Hx of myocardial infarction 11/2022 Diverticulitis Tear of medial meniscus of left knee Surgical History (Updated 04/25/24 @ 13:18 by Perri Cee RN) Hx of heart artery stent 11/2022-x2 History of bilateral carpal tunnel release Hx of hysterectomy History of cholecystectomy History of partial colectomy Social History (Updated 04/12/24 @ 15:55 by ADRIÁN Brewer) Smoking/Tobacco Use Status: Former Tobacco Use Quit Date: 09/12/99 Smoking risk assessment performed?: Yes Alcohol Intake: current Alcohol Intake frequency: a few times a week Alcohol type: hard liquor Drug use: Occasionally Substance use type: marijuana Details: 04/24/24: last smoked marijuana 2 days ago Housing: house Current gender identity: female Do you feel safe at home: Yes Do you feel safe in your relationship?: Yes Time Spent with Patient Time Spent with Patient: <45 minutes Time was spent: indepentently interpreting results and counseling the patient
--- NOTE | 2024-04-24 10:32 | W.ANESPRE ---
General Info Date of Service Date Performed: 04/24/24 Height: 5 ft Weight: 82.4 kg Body Mass Index (BMI): 35.4 Surgical Procedure: Operation Date: 04/24/24 12:25 Proposed Procedure Side Surgeon p Knee Total Arthroplasty, Cementless CR Left León Samuel MD Meds Allergies and Home Medications Allergies Allergy/AdvReac Type Severity Reaction Status Date / Time clindamycin Allergy Mild Other (See Verified 04/24/24 09:55 Comment) Home Medication ?Medication ?Instructions ?Recorded simvastatin 40 mg tablet 40 mg PO QPM 03/30/14 calcium carbonate 600 mg-vitamin 1 cap PO DAILY 08/31/19 D3 5 mcg (200 unit) capsule (Calcium 600 + D(3)) magnesium 250 mg tablet 250 mg PO DAILY 08/31/19 amlodipine 5 mg tablet 5 mg PO DAILY 12/21/22 atorvastatin 80 mg tablet 80 mg PO QHS 12/21/22 dexlansoprazole 60 mg 60 mg PO DAILY 12/21/22 capsule,biphase delayed release (Dexilant) empagliflozin 10 mg tablet 10 mg PO DAILY 12/21/22 (Jardiance) levothyroxine 50 mcg tablet 50 mcg PO DAILY 12/21/22 losartan 50 mg tablet 50 mg PO DAILY 12/21/22 metoprolol succinate 50 mg 50 mg PO DAILY 12/21/22 tablet,extended release 24 hr nitroglycerin 0.4 mg sublingual 0.4 mg sublingual Q5M PRN 12/21/22 tablet ondansetron HCl 4 mg tablet 4 mg PO QAM PRN 12/21/22 potassium chloride 10 mEq 10 meq PO DAILY 12/21/22 capsule,extended release pramipexole 0.75 mg tablet 0.75 mg PO DAILY 12/21/22 furosemide 20 mg tablet 20 mg PO DAILY 02/21/24 insulin glargine 100 unit/mL (3 36 unit subcut HS 02/22/24 mL) subcutaneous pen (Lantus Solostar U-100 Insulin) acetaminophen 500 mg tablet 1,000 mg (2 x 500 mg) PO Q8H PRN 04/24/24 pain #90 tabs aspirin 81 mg tablet,delayed 81 mg PO BID 30 days #60 tabs 04/24/24 release dexamethasone 4 mg tablet 4 mg PO DAILY #2 tabs 04/24/24 docusate sodium 100 mg capsule 100 mg PO BID #30 caps 04/24/24 (Colace) gabapentin 300 mg capsule 300 mg PO QHS #14 caps 04/24/24 meloxicam 15 mg tablet 15 mg PO DAILY #30 tabs 04/24/24 oxycodone 5 mg tablet 5 mg PO Q4H PRN #18 tabs 04/24/24 pantoprazole 40 mg tablet,delayed 40 mg PO DAILY #14 tabs 04/24/24 release Current Visit Medications: Current Medications Generic Name Dose Route Start Last Admin Trade Name Freq PRN Reason Stop Dose Admin Acetaminophen 1,000 mg 04/24/24 06:00 Acetaminophen 500 Mg Tab PO 04/24/24 23:59 PREOP STEPH Celecoxib 400 mg 04/24/24 06:00 04/24/24 09:56 Celecoxib 200 Mg Cap PO 04/24/24 23:59 400 mg PREOP STEPH Administration Gabapentin 300 mg 04/24/24 06:00 04/24/24 09:56 Gabapentin 300 Mg Cap PO 04/24/24 23:59 300 mg PREOP STEPH Administration Hydromorphone HCl 0.5 mg 04/24/24 10:22 Hydromorphone 2 Mg/Ml Syr IVP 05/24/24 10:21 Q2H PRN PRN Ringer's Solution 1,000 mls @ 80 mls/hr 04/24/24 06:00 IV 04/24/24 23:59 INFUSION STEPH Cefazolin Sodium/Dextrose 2 gm in 50 mls @ 100 mls/hr 04/24/24 06:00 Ancef Duplex IVPB 04/24/24 23:59 PREOP STEPH Tranexamic Acid/Sodium Chloride 1,000 mg in 100 mls @ 600 mls/hr 04/24/24 06:00 IVPB 04/24/24 23:59 PREOP STEPH Cefazolin Sodium/Dextrose 1 gm in 50 mls @ 100 mls/hr 04/24/24 12:00 Ancef Duplex IVPB 04/25/24 04:29 Q8H STEPH IV Miscellaneous Supplies 1 each 04/24/24 06:00 Iv Access IV 04/24/24 23:59 DIRECTED STEPH Oxycodone HCl 0 mg 04/24/24 10:22 Oxycodone 5 Mg Tab PO 05/24/24 10:21 Q3H PRN PRN Pain Sodium Chloride 0 ml 04/24/24 06:00 Normal Saline Flush 10 Ml Syr IV 04/24/24 23:59 PRN PRN Sodium Chloride 0 ml 04/24/24 06:00 Normal Saline 10 Ml Vial IJ 04/24/24 23:59 DIRECTED PRN Sterile Water 0 ml 04/24/24 06:00 Water,Injection,Sterile 10 Ml Vial IJ 04/24/24 23:59 DIRECTED PRN PFSH Active Problems Active Problems: Problem Status Onset Code Primary osteoarthritis of left knee Acute M17.12 Internal derangement of left knee Acute M23.92 Pes anserine bursitis Acute M70.50 Derange posterior horn lateral meniscus left knee due to old injury Acute M23.252 Hyperlipidemia Acute E78.5 Diverticulitis Chronic K57.92 Hiatal hernia with gastroesophageal reflux disease and esophagitis Acute K44.9, K21.0 Irritable bowel syndrome Chronic K58.9 Diabetes mellitus, type II Acute E11.9 AK (actinic keratosis) Acute L57.0 Health care maintenance Acute Z00.00 Contracture of joint of right hand Acute M24.541 Basal cell carcinoma, face Acute C44.310 Osteoarthritis Chronic M19.90 Wrist pain, right Acute M25.531 Medical History Medical History Hx of myocardial infarction 11/2022 Diverticulitis Tear of medial meniscus of left knee Surgical History Surgical History Hx of heart artery stent 11/2022-x2 History of bilateral carpal tunnel release Hx of hysterectomy History of cholecystectomy History of partial colectomy Tobacco Smoking/Tobacco Use Status: Former Tobacco Use Alcohol Alcohol Intake: current Alcohol intake frequency: a few times a week Alcohol type: hard liquor Substance Use Substance use: Occasionally Substance use type: marijuana Details: 04/24/24: last smoked marijuana 2 days ago Vital Signs and Lab Results Vital Signs Most Recent Vital Signs in EMR: Most Recent Vital Signs Temp Pulse Resp BP Pulse Ox 36.5 C 73 18 180/53 H 97 04/24/24 09:59 04/24/24 09:59 04/24/24 09:59 04/24/24 09:59 04/24/24 09:59 Point of Care Results Point of Care Results: Finger Stick Blood Glucose 79 04/24/24 10:08 Lab Results Blood Type / Crossmatch: No Data to Display Complete Blood Count: White Blood Count 7.28 10^3/uL (4.4-10.8) 04/12/24 15:09 Red Blood Count 4.28 10^6/uL (3.93-5.22) 04/12/24 15:09 Hemoglobin 13.1 g/dL (11.2-15.7) 04/12/24 15:09 Hematocrit 40.9 % (36.0-46.0) 04/12/24 15:09 Platelet Count 262 10^3/uL (130-400) 04/12/24 15:09 Complete Metabolic Panel: Sodium 142 mmol/L (136-145) 04/12/24 15:09 Potassium 3.9 mmol/L (3.5-5.1) 04/12/24 15:09 Chloride 104 mmol/L (98-107) 04/12/24 15:09 Carbon Dioxide 27.7 mmol/L (21.0-32.0) 04/12/24 15:09 BUN 17 mg/dL (7-18) 04/12/24 15:09 Creatinine 1.3 mg/dL (0.55-1.02) H 04/12/24 15:09 Est GFR (CKD-EPI 2020) 41.31 (mL/min/1.73m2) 04/12/24 15:09 Calcium 9.4 mg/dL (8.5-10.1) 04/12/24 15:09 Glucose 74 mg/dL (74-106) 04/12/24 15:09 Liver Function Panel: No Data to Display Coagulation Panel: No Data to Display Cardiac Panel: No Data to Display Arterial Blood Gas: No Data to Display Venous Blood Gas: No Data to Display Pancreas Panel: No Data to Display Thyroid Panel: No Data to Display Infectious Disease: No Data to Display Blood Cultures: No Data to Display Toxicology Panel: No Data to Display Imaging and Studies Imaging and Studies Study information below may be from another EMR and interpreted by another provider. Please see original notes in EMR for more complete details. Echocardiogram Summary: 04/06/24 EF 70%, mild MR Anesthesia Assessment and Plan Anesthesia History Personal History: No History of Anesthesia Complications Family History: No Family History of Anesthesia Complications Exercise Tolerance Exercise Tolerance: Metabolic Equivalents<4 Pertinent Negatives Pertinent Negatives: No Major Cardiovascular Symptoms or Complaints (NH with stents x 11 November 2022, no s/s since) and No Major Pulmonary Symptoms or Complaints Cardiac & Pulmonary Exam Cardiac Exam: Normal S1/S2 Heart Sounds Pulmonary Exam: Clear Bilateral Breath Sounds Implantable Cardiac Device Does patient have a Pacemaker or an ICD?: No Airway Exam Known Difficult Airway: No Mallampati Class: 2 Mouth Opening: Normal (> 3cm) Thyromental Distance: Greater than 3 cm Neck Range of Motion: Full ROM Neck Circumference: Thick Teeth Condition: Normal Dentition (lower) and Removable Dentures/Plates Upper ASA Classification ASA Score: ASA 3 Emergency Case?: No NPO Status NPO Status: NPO Clears >2 hours, Solids >8 hours Anesthesia Plan Resuscitation Status: Full Code Anesthesia Technique: Spinal Anesthesia Airway Planned: Natural Airway Pain Management: Surgeon and patient request nerve block Monitors Used: Standard Monitors Preoperative Comments:: Blood sugar was 218 at home this am, patient took larger than normal dose of Lantus (60U instead of usual 38U) asymptomatic at blood sugar of 70 on arrival, sips of apple juice with PO preop meds, IV changed to D5LR, plan frequent blood sugar checks in OR, 50% Dextrose on hand in OR.
[2024-04-24] MEDS: Lactated Ringers 1,000 ML 80 ML IV (10:35)
[2024-04-24] MEDS: DEXTROSE 5%-LACTATED RINGERS 1,000 ML 75 ML IV (10:55)
[2024-04-24] MEDS: ceFAZolin 2 GM/50 ML BAG IVPB (11:20)
[2024-04-24] MEDS: TRANEXAMIC ACID/SOD. CHL. 1,000 MG/100 ML BAG 600 MG IVPB (11:30)
--- NOTE | 2024-04-24 11:53 | W.ANESNERVE ---
Nerve Block Single Injection Procedure Date and Time Date Performed: 04/24/24 Procedure Start: 10:54 Location Where Procedure Performed Procedure Location: Day Surgery Unit Reason Performed: Postoperative Analgesia Requesting Provider: León Samuel Timeout Performed Timeout Performed: Yes Monitoring Used ECG, Blood Pressure, SpO2 and See EMR for corresponding vital signs Sterility Sterility: Hand Hygiene, Surgical Cap, Surgical Mask, Sterile Gloves, Sterile Drape/Sheet and Chlorhexidine Sedation Given During Procedure Sedation Given (Indicate Dose Given): No Sedation given Patient Mental Status Patient Mental Status: Awake Nerve Block 1st Nerve Block: Laterality: Left Block Type: Adductor Canal Ultrasound Image Saved?: Yes Needle / Catheter Used: 100mm SonoPlex II Local Anesthetic Bolus (Indicate Dose Given): Lidocaine used for local infiltration of skin, Injected in 3-5ml increments after negative blood aspiration and Bupivacaine 0.25% Dose:: 10 ml Additives (Indicate Dose Given): None Ultrasound: Sterile probe cover and gel used Nerve Stimulator: Supplement to Ultrasound use and No twitch or parasthesia noted < 0.5 mA Paresthesia: None Post Procedure Pain score (0-10): 0 Procedure Tolerated: No Complications and Patient tolerated well Procedure Outcome: Successful Performed By: Skyla Hernandez
--- NOTE | 2024-04-24 12:50 | ROE_ITS ---
Date of service: 04/24/24 Time of Service: 11:30 Operative Note Operative Note DATE OF PROCEDURE: 04/24/24 PRE-OP DIAGNOSIS: Left Knee Osteoarthritis POST-OP DIAGNOSIS: same PROCEDURE: Left Total Knee Replacement SURGEON: León Samuel SUPERVISOR BRAIDING: Didi Charles ANESTHESIA TYPE: Spinal Refer to Anesthesia Record ESTIMATED BLOOD LOSS: 150 PATHOLOGY: none sent TOURNIQUET TIME: 0 COMPLICATIONS: None Patient was transported to: PACU Patient's condition: stable Implants: 1. Depuy Attune Cementless Cruciate Retaining Femoral Component, Size 4 2. Depuy Attune Cementless Fixed Bearing Tibial Component, Size 3 3. Depuy Attune 4x5mm CR/FB Poly 4. Depuy Attune Patellar Component, Size 32 Indications: I have seen All in clinic for symptoms of knee arthritis, confirmed with radiographic findings. She has exhausted nonoperative methods and was having significant limitations in daily function and desired better function and less pain. I discussed the technical details of a knee replacement. I explained the risks of the procedure to include, but not limited to, bleeding, infection, pain, stiffness, fracture, damage to nerves and vessels, damage to muscles and tendons, loosening, need for repeat procedure, blood clot and cardiopulmonary demise. Despite these risks, All elected to proceed. Findings: There was significant signs of arthritis primarily involving the medial compartment and patella. Procedure Description: All was greeted in the preoperative holding area where the correct side was identified and marked. The consent was reviewed with the patient and signed. The history and physical was updated. All questions were answered. Preoperative medications were administered: Acetaminophen 1000mg, Celebrex 400mg, and Gabapentin 300mg. An adductor canal block was then administered by the anesthesia team in the PACU. All was taken back to the operating room. A spinal anesthestic was then administered. The patient was placed into the supine position on the operating room table. A nonsterile tourniquet was placed high onto the leg but only used for cementing. Posts were placed for positioning during the procedure. All bony prominences were well padded. Prophylactic antibiotics in the form of Cefazolin were administered. 1g of Tranxemic Acid was given intravenously within 30 minutes of incision. The left leg was then prepped with Chloraprep and draped in a standard fashion with impervious stockinette. A second prep with Chloraprep was performed prior to application of Iodine impregnated skin protection. A timeout to confirm correct identity, side and site, procedure, allergies, anesthesia, and medical concerns was performed. With the knee in some flexion, a midline incision was made overlying the knee. Full thickness skin flaps were raised once the extensor mechanism was encountered. These were raised medially and laterally. Any bleeding was controlled with electrocautery. Once the extensor mechanism was fully exposed, a medial parapatellar arthrotomy was performed in a flexed position. All bleeding from the arthrotomy and the geniculate arteries was coagulated. A medial subperiosteal peel was performed with electrocautery to the midcoronal plane. The fat pad was removed while keeping the patellar tendon protected. The anterior distal femur synovium was removed for later visualization. The ACL and PCL were resected and the anterior horn of the lateral meniscus was transected. The knee was then flexed with the patella everted. Using a step drill, and based on preoperative templating, the femoral canal was entered. This was done with a step drill without any difficulty. The intramedullary distal femoral cut guide was inserted, set to a 5 degree valgus cut and 9mm cut thickness. The distal femoral cut guide was then held in position and pinned. With the soft tissues protected, the distal cut was performed. This was passed over a few times to ensure a planar cut. I then turned attention to the tibia. The extramedullary guide was placed onto the leg. The distal aspect was slid medial to adjust for position of center of ankle and stay in line with shaft of the tibia. Approximately 3-5 degrees of posterior slope was kept in the proximal cutting guide. The center of the guide was aligned with the PCL. The stylus was used to assess cut thickness. The medial side, most involved side, was set for a 6mm cut, corresponding to 9mm laterally. This was then held in position and pinned into place with 2 additional pins and a cross pin for stability. The medial and lateral collateral ligaments were protected and the cut was performed. With this completed, it was assessed and noted to be of appropriate dimensions. The guide was removed. A spacer block was inserted and the knee was brought into extension. The 5mm spacer block provided full extension, without hyperextension and with stability of both the medial and lateral collateral ligaments was assessed. The pins from the femur and the tibia were then removed. The distal femur was then sized. The anterior stylus was placed onto the lateral ridge of the anterior femur. This indicated a size 4 femur. The external rotation of the guide was adjusted to 3 degrees to match the epicondylar axis, perpendicular to Chin?s line. The 4-in-1 cutting guide was the placed. The posterior medial femur cut was evaluated and appeared of good thickness. The spacer block was inserted underneath the cutting guide and stability was confirmed in 90 degrees of flexion. An froilan wing was used to confirm appropriate position of the anterior cut to avoid notching. This cutting guide was ensured to be flush on the cut surface and then pinned into place with headed pins. While protecting the soft tissues, quad tendon, and collateral ligaments, the anterior and posterior cuts were performed with a saw. The central two pins were removed and the posterior and anterior chamfers were cut next. The notch-cutting guide was placed. This was pinned to lateralize the femoral component as much as possible while keeping it flush on the cut surface. This was then pinned into position. A reciprocating saw was used to make the notch cut. A rasp smoothed the cut surfaces. The medial and lateral menisci were removed. A trial femoral component was then inserted, impacted down to the cut surfaces, and the lug holes were drilled. A provisional trial tibial component was placed and the knee was brought through range of motion. There was noted to be excellent extension and flexion. There was no significant instability. The patella was tracking without thumbs. A size 5mm polyethylene component provided the best range of motion and stability with less than 2mm gapping with medial and lateral stress and full extension without significant hyperextension. The tibial cut surface was fully exposed. The tibia was then sized as a 3. The tibia had been previously marked during trialing to correspond to the center of the tibial component to help with rotation. The trial was aligned to this heather, approximately rotated to the medial 1/3rd of the tibial tubercle. The trial was pinned into place. The tibia was prepared with a reamer and a keel punch and lug holes. The knee was then brought into extension and the patella was measured as 22mm. Using the patellar clamp and cut guide, this was resected to a flat surface with at least 13mm of thickness remaining. The size 32 patella fit the best. This was oriented and then clamped into position. The lugs were drilled. The trial components were removed. The final components were opened on the back table. The periosteal and capsular tissues, especially posteriorly, around the knee were then systematically injected with a periarticular cocktail consisting of 246mg of Ropivacaine, 0.5mg of Epinephrine, 0.08mg of Clonidine, and 30mg of Ketorolac, diluted to 100cc. On the back table, with the implants opened, the cement was mixed. One batch of high viscosity cement was prepared with vacuum assistance. After the cement was ready a small amount was placed on the cut surface of the patella and the p atellar button was clamped into position and held. While the cement was hardening, the cementless knee components were placed. Starting with the tibial component, the tibia was subluxed anteriorly and the lug holes of the component were lined up. The tibia was then impacted with an impactor and mallet until the tibial component was in contact with the tibia. The final polyethylene component was inserted. Then, the femoral component was inserted. The lug holes were aligned and the component was impacted into position. The knee was irrigated with Surgiphor Betadine solution. This was allowed to sit in the knee for 3 minutes and then it was irrigated out with saline. After the cement had finally cured, approximately 15min, the clamp was removed from the patella and the knee was taken through range of motion. The patella was tracking with a no-thumbs technique. The capsule was then reapproximated with a No. 1 Vicryl at multiple locations. The capsule was finally closed with a No. 2 Stratafix, barbed suture. The second dosing of 1g TXA was started. Deep tissues were then reapproximated with 0 Vicryl and 2-0 Vicryl. The skin was closed with a running 3-0 Monocryl in a subcuticular fashion. This was reinforced with skin glue. A Mepilex silver dressing was applied along with a [id number] KIERAN wrap. A CryoCuff was applied. All was transferred to the hospital bed without difficulty an suffering no apparent complication. All has a good prognosis. Physical therapy will start today and without restrictions, weight-bearing as tolerated. Aspirin 81mg BID will be used for DVT prophylaxis.
[2024-04-24] MEDS: oxyCODONE 5 MG TAB PO ×2 (14:42→16:03)
--- NOTE | 2024-04-24 14:54 | W.ANESPOSTOP ---
Postoperative Evaluation Date, Time and Location Date Performed: 04/24/24 Time Performed: 14:54 Patient Location: Day Surgery Unit Vital Signs Most Recent Imported Vital Signs: Most Recent Vital Signs Temp Pulse Resp BP Pulse Ox 36 C L 65 16 144/86 H 93 04/24/24 14:30 04/24/24 14:30 04/24/24 14:30 04/24/24 14:30 04/24/24 14:30 Pain Score Most Recent Pain Score: Most Recent Pain Score Pain Level 5 04/24/24 14:30 Assessment Mental Status: Awake (Alert & Oriented to Patient Baseline) Airway and Respiratory Function: Patent airway with normal (patient baseline) respiratory exam Cardiovascular Function: Hemodynamically Stable Hydration Status: Adequately Hydrated Nausea & Vomiting: No Nausea or Vomiting Pain: Pain is tolerable per patient Peripheral Nerve Block: Patient did not receive a nerve block
--- NOTE | 2024-04-24 15:25 | IN_ITS ---
PT Notes Visit Reasons: Left knee DJD Please sign an return this page within 30 days if you agree with the above POC. Thank you! Physician Signature Date Physical Therapy Day Surgery Initial Evaluation Date: 04/24/2024 Referring Doctor: ADRIÁN Roberts PT Orders: PT CONSULT: S/P Ortho surgery Precautions: WBAT on left LE with AD. Patient Profile/Admitting Diagnosis: All is an 83-year-old female with degenerative joint disease of the left knee and status post left total knee arthroplasty and postoperative day 0. PMHX: Medical History (Updated 01/12/24 @ 13:56 by Perri Cee RN) Diverticulitis Tear of medial meniscus of left knee Surgical History History of bilateral carpal tunnel release Hx of hysterectomy History of cholecystectomy History of partial colectomy Social History/Home Situation: Lives with in a one-level handicap-accessible home. Able to navigate indoors without AD. Equipment Owned/DME: 4WW Subjective: Cramping in her R lower extremity. Complained of pain in the L knee at 6/10 with weight bearing. Objective: General Observation: KIERAN wraps to left LE. Cryo/Cuff to left knee. TEDS to right leg and foot. Mental Status: A and O x 4 Pain: 6/10 on the L knee with weight bearing ROM: Right Lower Extremity: Hip flexion WFL. Hip abduction WFL. Knee flexion WFL. Ankle dorsiflexion WFL. Ankle plantarflexion WFL. Left Lower Extremity: Hip flexion WFL. Hip abduction WFL. Knee flexion 20-90 degress. Knee extension -20 degrees ankle dorsiflexion WFL. Ankle plantarflexion WFL. Strength: Right Lower Extremity: Hip flexors 5/5. Hip abductors 5/5. Knee flexors 5/5. Knee extensors 5/5. Ankle dorsiflexors 5/5. Ankle plantarflexors 5/5. Left Lower Extremity:Hip flexors 4/5. Hip abductors 4/5. Knee flexors 3-/5. Knee extensors 3-/5. Ankle dorsiflexors 5/5. Ankle plantarflexors 5/5. Sensation: Intact tested pain and light pressure in bilateral lower extremities Bed Mobility/Transfers: Minimal cueing provided for use of B hands as needed for support, movement sequence, AD management, and posture to reduce fall risk and minimize pain report Supine to sit stand by assist Sit to stand contact guard assist with FWW Stand to sit stand by assist with FWW Bed to chair stand by assist with FWW Gait: Facilitate safe and good performance of level surface ambulation covering a distance of 15 feet + 50 feet +50 feet with 3 seated rest needed show to increase in pain report on the left knee at 6/10 requiring contact guard assist to minimal assist for safety with minimal verbal cues provided for AD management, proper weight distribution, limb advancement, and posture to minimize pain reported and reduce fall risk. Stairs: Not done. Patient lives in a handicap-accessible residence without steps. Balance: Static Sitting: Normal Dynamic Sitting: Normal Static Standing: Fair Dynamic Standing: Fair Special Tests: Mobility Limitations Standardized Measure [facility] AM-PAC 6 clicks Basic Mobility Inpatient Short Form: Raw Score: 21 CMS Score: 29% deficit Informed Consent/Education: Patient instructed in purpose of PT consult. Packet containing TKA exercise protocol has been given to patient. Education and training on initial set of exercises that can be done at home have been completed with patient. Trained patient with correct performance of exercises below to maximize motor control, joint flexibility, soft tissue extensibility of the L knee musculature: Access Code: [email or web address] URL: [email or web address] Date: 04/24/2024 Prepared by: Dulce Maria Kunz Exercises - Supine Quad Set - 1 x daily - 7 x weekly - 1 sets - 10 reps - 5 hold - Supine Heel Slide - 1 x daily - 7 x weekly - 1 sets - 10 reps - 5 hold - Supine Ankle Pumps - 1 x daily - 7 x weekly - 1 sets - 10 reps - 5 hold - Small Range Straight Leg Raise - 1 x daily - 7 x weekly - 1 sets - 10 reps - 5 hold - Seated March - 1 x daily - 7 x weekly - 1 sets - 10 reps - 5 hold Assessment: Patient requires the use of a front wheeled walker for all mobility ADL performance of maximize independence and reduce fall risk. Patient demonstrated safe technique but pain level limited distance walked and increased antalgic gait due to pain report of 6/10 in the L knee. Patient was fitted with new front-wheeled walker as she only has 4WW at home. Patient presents with clinical signs and symptoms consistent with current/admitting diagnoses that have resulted to mobility limitations, gait instability, generalized weakness, and impairment of motor control as demonstrated by the following impairment level findings: 1. Decreased strength to left knee major muscle groups 2. Impaired standing balance 3. Limitation of joint range of motion in left knee Impairments are contributing to the following functional limitations: 1. Inability to safely ambulate without assistive device 2. Increase completion time for mobility ADL performance 3. Increased fall risk Patient is assessed as a 01210 moderate complexity based on the following: History: 83-year-old female with impairment level findings, functional limitations, and past medical history as indicated above Examination: Demonstrable impairment in strength, balance, and mobility level with underlying impairments and functional limitations as documented above Presentation: Evolving Decision Makin moderate complexity Goals: N/A. PT evaluation and 1-2 treatment sessions only for functional mobility training using recommended AD and for HEP instruction. Plan of Care/Treatment Plan: N/A. PT evaluation and 1-2 treatment session only for functional mobility training using recommended AD and for HEP instruction. DISCHARGE RECOMMENDATIONS: Home when medically cleared by orthopedic surgeon. Recommend outpatient PT services in order to optimize functional mobility outcomes and facilitate return to independent community ambulation without an assistive device. TREATMENT CODE/TIME: 71770 x 20 minutes for 1 unit, 54104 x 27 minutes for 2 units (15:25?16:12). Dulce Maria Kunz PT, DPT, CLT [facility] [place], [place] [facility]
== END 2024-04-24 16:46 | disposition home or self-care (01) ==
PROVIDERS: PCP Physician Assistant; Visit Provider Student in an Organized Health Care Education/Training Program
PROC: (CPT 27447; principal; 2024-04-24 12:15)
DX: M17.12 Unilateral primary osteoarthritis, left knee (principal); E11.9 Type 2 diabetes mellitus without complications; Z79.84 Long term (current) use of oral hypoglycemic drugs; E78.5 Hyperlipidemia, unspecified
CPT/HCPCS: 27447; 76942; 97162; 97530; C1776; J0665; J0690; J1100; J2001; J2250; J2401; J2405; J2704

== ENCOUNTER 2024-05-07 14:23 | Outpatient (CLI) | payer MEDICARE, SELFPAY ==
--- NOTE | 2024-05-07 13:59 | DI.RAD_ITS ---
Exam(s) XR KNEE LT 1V XR STANDING ALIGNMENT EXAM: XR STANDING ALIGNMENT CLINICAL HISTORY: 1ST POST OP L TKA. TECHNIQUE: 2D digital imaging was performed. Standing AP views were performed from the pelvis throu gh the ankles. COMPARISON: CR XR STANDING ALIGNMENT from 04/12/2024 CR XR KNEE LT 1V from 05/07/2024 FINDINGS: BONES: No acute fracture is present. No bony destructive lesion is seen. Leg length discrepancy: No significant overall leg length discrepancy of level of the femoral heads. JOINTS: Knees: A total left knee prosthesis has been placed since the prior exam. The alignment appe ars satisfactory. The right knee joint spaces are maintained. The ankle joints are unremarkable. The hip small joint spaces are maintained. Mild acetabular spurring. SOFT TISSUE: Vascular calcifications. Mild left lower extremity edema. IMPRESSION: Status post placement of left knee prosthesis. No significant leg length discrepancy. DATA REPOSITORY: RADIATION DOSE DELIVERED:
== END 2024-05-07 14:24 | disposition home or self-care (01) ==
LOC: DIORS 14:23
PROVIDERS: PCP Physician Assistant; Referring Provider Internal Medicine; Visit Provider Student in an Organized Health Care Education/Training Program
DX: Z96.652 Presence of left artificial knee joint (principal); Z47.1 Aftercare following joint replacement surgery
CPT/HCPCS: 73560; 77073

== ENCOUNTER → 2024-06-08 10:08 | Outpatient (BNVA) | payer MEDICARE, SELFPAY | PROVIDERS: PCP Physician Assistant | DX: Z47.1 Aftercare following joint replacement surgery (principal); Z96.652 Presence of left artificial knee joint ==

== ENCOUNTER → 2024-07-19 10:28 | Outpatient (BNVA) | payer MEDICARE, SELFPAY | PROVIDERS: PCP Physician Assistant; Referring Provider Physician Assistant; Visit Provider Student in an Organized Health Care Education/Training Program | DX: Z96.652 Presence of left artificial knee joint (principal); Z47.1 Aftercare following joint replacement surgery | CPT/HCPCS: 99024 ==

== ENCOUNTER → 2024-09-06 10:24 | Outpatient (BNVA) | payer MEDICARE, SELFPAY | PROVIDERS: PCP Physician Assistant; Referring Provider Physician Assistant; Visit Provider Physician Assistant | DX: Z47.1 Aftercare following joint replacement surgery (principal); Z96.652 Presence of left artificial knee joint | CPT/HCPCS: 99213 ==

== ENCOUNTER 2024-09-14 16:58 | Outpatient (REF) | payer MEDICARE, SELFPAY ==
[2024-09-14 19:10] LABS: Abs Immature Grans 0.02 10^3/uL (0.0-0.06); Absolute Basophil Count 0.04 10^3/uL (0.0-0.2); Absolute Eosinophil Count 0.11 10^3/uL (0.0-0.7); Absolute Lymphocyte Count 2.08 10^3/uL (1.2-3.4); Absolute Monocyte Count 0.53 10^3/uL (0.1-0.8); Absolute Neutrophil Count 3.56 10^3/uL (1.2-6.7); Basophils % 0.6 %; Eosinophils % 1.7 %; HCT 41.3 % (36.0-46.0); HGB 12.9 g/dL (11.2-15.7); Immature Grans % 0.3 %; Lymphocytes % 32.8 %; MCH 30.5 pg (27.0-33.0); MCHC 31.2 % (32.0-36.0); MCV 98 fL (80-95); MPV 10.5 fL (8.0-11.0); Monocytes % 8.4 %; Neutrophils % 56.2 %; Platelet Count 322 10^3/uL (130-400); RBC 4.23 10^6/uL (3.93-5.22); RDW 13.1 % (11.7-14.6); RDW-SD 46.7 fL; WBC 6.34 10^3/uL (4.4-10.8)
[2024-09-14 19:38] LABS: ALT 17 U/L (14-59); AST 24 U/L (15-37); Albumin 3.6 g/dL (3.4-5.0); Alkaline Phosphatase 81 U/L (46-116); BUN 21 mg/dL (7-18); Bilirubin, Total 0.44 mg/dL (0.2-1.0); CREATININE 1.5 mg/dL (0.55-1.02); Calcium 9.3 mg/dL (8.5-10.1); Chloride 106 mmol/L (98-107); Estimated GFR 34.79 (mL/min/1.73m2); Glucose 185 mg/dL (74-106); Potassium 4.1 mmol/L (3.5-5.1); Sodium 141 mmol/L (136-145); Troponin I 4 ng/L (<or=51)
== END 2024-09-14 16:59 | disposition home or self-care (01) ==
LOC: NCHCN 16:58
PROVIDERS: PCP Physician Assistant; Visit Provider Physician Assistant
DX: E03.9 Hypothyroidism, unspecified (principal)
CPT/HCPCS: 80053; 84443; 84484; 85025

== ENCOUNTER 2024-10-31 15:01 | Outpatient (REF) | payer MEDICARE, SELFPAY | END 2024-10-31 15:02 | disposition home or self-care (01) | LOC: NCHCN 15:01 | PROVIDERS: PCP Physician Assistant; Visit Provider Physician Assistant | DX: N89.8 Other specified noninflammatory disorders of vagina (principal) | CPT/HCPCS: 87480; 87510; 87660 ==

== ENCOUNTER 2025-08-13 19:41 | Outpatient (REF) | payer MEDICARE, SELFPAY ==
[2025-08-13 19:07] LABS: HCT 37.6 % (36.0-46.0); HGB 12.1 g/dL (11.2-15.7); MCH 30.9 pg (27.0-33.0); MCHC 32.2 % (32.0-36.0); MCV 96 fL (80-95); MPV 10.7 fL (8.0-11.0); Platelet Count 293 10^3/uL (130-400); RBC 3.92 10^6/uL (3.93-5.22); RDW 12.9 % (11.7-14.6); RDW-SD 45.9 fL; WBC 5.82 10^3/uL (4.4-10.8)
[2025-08-13 19:18] LABS: Iron 86 ug/dL (50-170); Total Iron Binding Capacity 380 ug/dL (250-425); Transferrin Sat 23 % (15-50)
[2025-08-13 19:21] LABS: ALT 17 U/L (10-49); AST 19 U/L (<34); Albumin 4.2 g/dL (3.2-5.0); Alkaline Phosphatase 72 U/L (46-116); Anion Gap 7.7 mmol/L (3-11); BUN 18 mg/dL (9-23); Bilirubin, Total 0.40 mg/dL (0.2-1.2); CO2 26.3 mmol/L (20.0-31.0); Calcium 8.9 mg/dL (8.3-10.6); Chloride 106 mmol/L (98-107); Glucose 200 mg/dL (74-106); Potassium 4.1 mmol/L (3.5-5.1); Sodium 140 mmol/L (136-145); Total Protein 6.5 g/dL (5.7-8.2)
[2025-08-13 19:23] LABS: Ferritin 20 ng/mL (7-271)
[2025-08-20 15:56] LABS: 1,25-Dihydroxyvitamin D 30 pg/mL (18-78)
== END 2025-08-13 19:42 | disposition home or self-care (01) ==
LOC: NCHCN 19:41
PROVIDERS: PCP Physician Assistant; Visit Provider Physician Assistant
DX: N18.30 Chronic kidney disease, stage 3 unspecified (principal); E11.9 Type 2 diabetes mellitus without complications
CPT/HCPCS: 80053; 85027; 82043; 82570; 82652; 82728; 83540; 83550; 83970